=== PATIENT | female | born 1945 | race Caucasian/White ===

== ENCOUNTER 2017-01-15 19:54 | Emergency (ER) | payer MEDICARE ==
[~2017-01-15] VITALS: Ht 157.4 cm; Wt 81.6 kg
[~2017-01-15 19:54] MED LIST: ASPIRIN ADULT L81 M2 PO; ASPIRIN325 MG PO; CARDIZEM CD300 MG PO; CLARITIN10 MG PO; COZAAR100 MG PO; Coumadin5 MG PO; DILTIAZEM30 MG PO; FUROSEMIDE20 MG PO; HYDRALAZINE HYD50 MG PO; HYDROCHLOROTHIA25 M1 PO; KLOR-CON M1010 ME1 PO; LASIX40 MG PO; LEVAQUIN750 M1 PO; LEVOTHYROXINE0.15 MG PO; LOPRESSOR50 M1 PO; MAGNESIUM OXID400 MG PO; NOVOLOG; OSMOLITE; OYSTER SHELL C1 EAC4 PO; PHOS-NAK1 PDR PO; PREDNISONE10 MG PO; PROTONIX PEG; PROZAC20 MG PO; VITAMIN D32000 UNIT PO; ZOCOR40 MG PO; ZYRTEC10 MG PO; [UNRECOGNIZED DRUG - SUPPLY] PO
[2017-01-15] MEDS ORDERED: PROZAC20 MG PO (20:01)
[2017-01-15] MEDS ORDERED: LIPITOR10 MG PO (20:01)
[2017-01-15] MEDS ORDERED: LOPRESSOR50 M1 PO (20:02)
[2017-01-15] MEDS ORDERED: HYDRALAZINE HYD50 MG PO (20:02)
[2017-01-15] MEDS ORDERED: VITAMIN D-32000 UNI1 PO (20:02)
[2017-01-15] MEDS ORDERED: LASIX40 MG PO (20:03)
[2017-01-15] MEDS ORDERED: DILTIAZEM 24HR300 MG PO (20:03)
[2017-01-15] MEDS ORDERED: COZAAR100 MG PO (20:03)
[2017-01-15] MEDS ORDERED: WARFARIN SOD5 MG PO (20:04)
[2017-01-15] MEDS ORDERED: COUMADIN2.5 M1 PO (20:04)
== END 2017-01-15 20:18 | disposition home or self-care (01) ==
LOC: ED 19:54
DX: S80.811A Abrasion, right lower leg, initial encounter (principal); S80.212A Abrasion, left knee, initial encounter; J44.9 Chronic obstructive pulmonary disease, unspecified; I48.91 Unspecified atrial fibrillation; I13.0 Hypertensive heart and chronic kidney disease with heart failure and stage 1 through stage 4 chronic kidney disease, or unspecified chronic kidney disease; I50.30 Unspecified diastolic (congestive) heart failure; N18.3 Chronic kidney disease, stage 3 (moderate); J45.909 Unspecified asthma, uncomplicated; E78.5 Hyperlipidemia, unspecified; E03.9 Hypothyroidism, unspecified; Z88.1 Allergy status to other antibiotic agents; Z88.6 Allergy status to analgesic agent; Z88.8 Allergy status to other drugs, medicaments and biological substances; Z79.02 Long term (current) use of antithrombotics/antiplatelets; Z79.899 Other long term (current) drug therapy; W01.0XXA Fall on same level from slipping, tripping and stumbling without subsequent striking against object, initial encounter; Y93.01 Activity, walking, marching and hiking; Y92.009 Unspecified place in unspecified non-institutional (private) residence as the place of occurrence of the external cause; Y99.8 Other external cause status

== ENCOUNTER 2017-01-16 11:35 | Emergency (ER) | payer MEDICARE ==
[~2017-01-16] VITALS: Wt 74.8 kg
[~2017-01-16 11:35] MED LIST changes: +COUMADIN2.5 M1 PO; +DILTIAZEM 24HR300 MG PO; +LIPITOR10 MG PO; +VITAMIN D-32000 UNI1 PO; +WARFARIN SOD5 MG PO
[2017-01-16 17:54] LABS: BASO % 0.3 % (0.0-1.0); EOS # 0.3 10*3/uL (0.0-0.4); EOS % 3.4 % (1.0-4.0); HEMATOCRIT 35.7 % (37.0-47.0); HEMOGLOBIN 11.8 g/dl (12.0-16.0); LYMPH # 1.8 10*3/uL (1.3-4.4); LYMPH % 24.8 % (27.0-41.0); MEAN CELL VOLUME 90.6 fl (81.0-99.0); MEAN CORPUSCULAR HGB 29.9 pg (27.0-31.0); MEAN CORPUSCULAR HGB CONC 33.1 g/dl (33.0-37.0); MONO # 0.5 10*3/uL (0.1-1.0); MONO % 7.1 % (3.0-9.0); NEUT # 4.7 10*3/uL (2.3-7.9); PLATELET COUNT AUTOMATED 147 10*3/uL (130-400); RED BLOOD COUNT 3.94 10*6/uL (4.10-5.10); RED CELL DISTRI WIDTH 13.4 % (0-14.5); WHITE BLOOD COUNT 7.4 10*3/uL (4.8-10.8)
[2017-01-16 18:05] LABS: PROTHROMBIN TIME 22.7 SECONDS (9.0-12.4)
== END 2017-01-16 18:37 | disposition home or self-care (01) ==
LOC: ED 11:35
PROVIDERS: Emergency Medicine
DX: S81.811D Laceration without foreign body, right lower leg, subsequent encounter (principal); I48.91 Unspecified atrial fibrillation; I13.0 Hypertensive heart and chronic kidney disease with heart failure and stage 1 through stage 4 chronic kidney disease, or unspecified chronic kidney disease; N18.3 Chronic kidney disease, stage 3 (moderate); E78.5 Hyperlipidemia, unspecified; E03.9 Hypothyroidism, unspecified; J44.9 Chronic obstructive pulmonary disease, unspecified; Z79.899 Other long term (current) drug therapy; Z79.02 Long term (current) use of antithrombotics/antiplatelets; Z88.1 Allergy status to other antibiotic agents; Z88.6 Allergy status to analgesic agent; Z88.8 Allergy status to other drugs, medicaments and biological substances; W19.XXXD Unspecified fall, subsequent encounter; Y92.9 Unspecified place or not applicable; Y99.9 Unspecified external cause status

== ENCOUNTER → 2017-01-18 | Outpatient (CLI) | payer MEDICARE | LOC: WOUNDCARE 04:25 | DX: S81.811D Laceration without foreign body, right lower leg, subsequent encounter (principal); I48.91 Unspecified atrial fibrillation; J44.9 Chronic obstructive pulmonary disease, unspecified; F32.9 Major depressive disorder, single episode, unspecified; E78.5 Hyperlipidemia, unspecified; I11.0 Hypertensive heart disease with heart failure; I50.30 Unspecified diastolic (congestive) heart failure; E03.9 Hypothyroidism, unspecified; Z79.01 Long term (current) use of anticoagulants; X58.XXXD Exposure to other specified factors, subsequent encounter ==

== ENCOUNTER → 2017-01-25 | Outpatient (CLI) | payer MEDICARE | LOC: WOUNDCARE 02:49 | DX: L97.812 Non-pressure chronic ulcer of other part of right lower leg with fat layer exposed (principal); I87.2 Venous insufficiency (chronic) (peripheral); I48.91 Unspecified atrial fibrillation; Z79.01 Long term (current) use of anticoagulants ==

== ENCOUNTER → 2017-02-01 | Outpatient (CLI) | payer MEDICARE | LOC: WOUNDCARE 03:08 | DX: I70.238 Atherosclerosis of native arteries of right leg with ulceration of other part of lower leg (principal); L97.812 Non-pressure chronic ulcer of other part of right lower leg with fat layer exposed; Z79.01 Long term (current) use of anticoagulants ==

== ENCOUNTER → 2017-02-15 | Outpatient (CLI) | payer MEDICARE ==
--- NOTE | ~2017-02-15 | PR ---
[place], [place] PROGRESS NOTE NAME: [facility] H[facility] #: [id number] UNIT #: [id number] ROOM: DOCTOR: MICHAEL AdairUZAIR BIRTHDATE: [birth year] DOS: CHIEF COMPLAINT: Wound on the right leg. HISTORY OF PRESENT ILLNESS: This is a 71-year-old female who suffered a large skin tear on 01/16/2017. She has been coming to the Wound Clinic for 4 weeks now. She had a fairly large open wound with necrotic tissue. She has been on anticoagulation for atrial fibrillation and had a couple of episodes of bleeding secondary to this. The last time she was here, we had added Bactroban to the Santyl and she comes back for her routine visit. She offers no specific complaints. Home health has been changing her bandage. PHYSICAL EXAMINATION: VITAL SIGNS: Stable, temperature is 98.2, pulse is 58, respirations are 18 and blood pressure is 100/60. SKIN: The wound is measuring a little bit smaller at 2.6 x 4.7 x 0.2. There is pretty good granulation. There is still some fibrin slough present mostly in the middle part of the wound. There is still exposed subcutaneous tissue. There is, however, around the periwound a dermatitis-type reaction to something. Her [id number] who brings her thinks it started as soon as we started the new medication, which was Bactroban. So, she must have had some type of allergic reaction to that. A debridement was done today. The tissue removed was fibrin, slough and subcutaneous tissue. This was accomplished with a curette, forceps and scissors. There was minimal bleeding that was controlled with pressure. Post-debridement measurements are unchanged. The patient tolerated the debridement well and there was moderate bleeding that was controlled with pressure. ASSESSMENT AND PLAN: Abrasion of the right leg which was quite large with large amounts of necrotic tissue. Overall, there is much less necrotic tissue. I would like to stop the Santyl and stop the Bactroban and use Maxorb for absorption. It does appear that there is some maceration present as well, so hopefully this will help. We can use Telfa as a secondary dressing with Amanda and have her change it every other day. Followup is in one week. We will also use Tubigrip for edema control. [place], [place] [facility]GR[id number] UNIT #: [id number] ROOM: DOCTOR: UZAIR RODRIGUEZ M.D. BIRTHDATE: [birth year] UZAIR RODRIGUEZ MD CM:BART 1116 113 UZAIR RODRIGUEZ M.D. 02/15/17 1132 interface
== END ==
LOC: WOUNDCARE 04:16
DX: L97.812 Non-pressure chronic ulcer of other part of right lower leg with fat layer exposed (principal); I48.91 Unspecified atrial fibrillation; Z79.01 Long term (current) use of anticoagulants

== ENCOUNTER → 2017-02-23 | Outpatient (CLI) | payer MEDICARE ==
--- NOTE | ~2017-02-23 | PR ---
[place], [place] PROGRESS NOTE NAME: ROCKY HAM UNIT #: [id number] ROOM: DOCTOR: MICHAEL AdairUZAIR BIRTHDATE: [birth year] DOS: 02/23/2017 CHIEF COMPLAINT: Followup of chronic wound of the right lower extremity. HISTORY OF PRESENT ILLNESS: This is a 71-year-old female on chronic anticoagulation, who suffered a large skin tear on the anterior right tibia early this past January. She has been coming to the Wound Clinic for 5 weeks now with this steadily improving wound; however, last week, it was noted that she did have some dermatitis around the periwound area and her dressing was changed to Maxorb. Currently, she is having no complaints. We also had recommended Tubigrip for chronic edema, but she did not like it, she said it made her feet itch, so she did not wear it. She has very little drainage. No fevers or chills. No pain with the wound. She is able to walk on it without any specific complaints. OBJECTIVE: VITAL SIGNS: Stable. Temperature 98.2, pulse 60, respirations 18, blood pressure is 102/60. SKIN: The wound is measuring slightly smaller at 2.6 x 4 x 0.1. It looks fairly clean. There is still some minimal to moderate slough. The periwound area is quite erythematous in a dermatitis type pattern secondary to what appears to be from the dressing material. A debridement was done. Tissue removed was fibrin slough and subcutaneous tissue. There was minimal to moderate bleeding that was controlled with pressure. Post debridement measurements are unchanged. The patient tolerated the debridement well. ASSESSMENT AND PLAN: Cetacaine spray was used for topical anesthesia. A lot of the maceration that was present before is definitely resolved. Apparently, she was on Maxorb and that did stick to the wound a bit, so I would like to switch her to just Adaptic and 4 x 4s and Amanda and have her change it every other day. Due to the dermatitis around the periwound. We will prescribe a triamcinolone cream. This will be called into her pharmacy blower today. We will use hydrocortisone. Followup in one week. [place], [place] PROGRESS NOTE NAME: ROCKY HAM UNIT #: [id number] ROOM: DOCTOR: UZAIR RODRIGUEZ M.D. BIRTHDATE: [birth year] UZAIR RODRIGUEZ MD CM:BART [phone] UZAIR RODRIGUEZ M.D. 02/23/17 1138 interface
== END ==
LOC: WOUNDCARE 00:50
DX: L97.812 Non-pressure chronic ulcer of other part of right lower leg with fat layer exposed (principal); Z79.01 Long term (current) use of anticoagulants

== ENCOUNTER → 2017-03-01 | Outpatient (CLI) | payer MEDICARE ==
--- NOTE | ~2017-03-01 | PR ---
[place], [place] PROGRESS NOTE NAME: R[facility]Y HAM [facility] #: [id number] UNIT #: [id number] ROOM: DOCTOR: MICHAEL AdairUZAIR BIRTHDATE: [birth year] DOS: 03/01/2017 WOUND CARE FOLLOWUP NOTE CHIEF COMPLAINT: Follow up of right lower extremity wound. HISTORY OF PRESENT ILLNESS: The wound is located on the anterior lower extremity. She is a 71-year-old female on chronic anticoagulation. She suffered a very large skin tear of the anterior tibia. She has been coming to the Wound Clinic for 6 weeks now. The wound has been steadily improving last week and it was noted that she had a lot of dermatitis around the area. Steroid cream was prescribed; however, her family member who generally cares for her, did not pick it up. She reports no significant pain, fevers, chills, or change in drainage. OBJECTIVE: VITAL SIGNS: Stable. Temperature 98.2, pulse is 60, respirations 18, blood pressure is 98/48. The wound is measuring slightly smaller at 1 x 2.5 x 0.1. There is a large amount of periwound dermatitis. It is erythematous, dry, scaly at times. The patient says it does itch her. There is minimal fibrin slough in the base of the wound. There is hypergranulation as well noted. A selective debridement was done. The tissue removed was fibrin, slough, and biofilm. The patient tolerated the debridement well. Cetacaine spray was used for topical anesthesia. A curette was utilized. There was no bleeding. Postdebridement measurements are unchanged. ASSESSMENT AND PLAN: Chronic ulcer of the right lower extremity secondary to a very large skin tear that seems to be gradually healing. She still has dermatitis around the periwound. There may be a cellulitic component to it as well as it remains fairly erythematous. We will go ahead and start doxycycline empirically 100 mg twice a day was called [facility]. Also, I did verify they still have a steroid cream available. I would like her to use that on a daily basis as well on the outside of the wound. For the wound itself, we will go ahead and use TheraHoney sheet, 4 x 4s, Amanda, and have her follow up in the Wound Clinic in next week. I did recommend for her to get her Coumadin checked in 2-3 days after being on the antibiotics results to go to PCP. [place], [place] PROGRESS NOTE NAME: ROCKY HAM UNIT #: [id number] ROOM: DOCTOR: UZAIR RODRIGUEZ M.D. BIRTHDATE: [birth year] UZAIR RODRIGUEZ MD CM:BART [phone] UZAIR RODRIGUEZ M.D. 03/01/17 2251 interface
== END | disposition home or self-care (01) ==
LOC: WOUNDCARE 03:18
DX: L97.812 Non-pressure chronic ulcer of other part of right lower leg with fat layer exposed (principal); Z79.01 Long term (current) use of anticoagulants

== ENCOUNTER → 2017-03-08 | Outpatient (CLI) | payer MEDICARE ==
--- NOTE | ~2017-03-08 | PR ---
[place], [place] PROGRESS NOTE NAME: [facility] H[facility] #: [id number] UNIT #: [id number] ROOM: DOCTOR: MICHAEL AdairUZAIR BIRTHDATE: [birth year] DOS: 03/08/2017 WOUND CARE PROGRESS NOTE CHIEF COMPLAINT: Followup of a wound of the right lower extremity. SUBJECTIVE: This is a 71-year-old female with multiple medical problems on chronic anticoagulation, who has had a very large skin tear of the anterior tibia. She has been coming to the wound clinic for 7 weeks now. The wound has been steadily improving; however, she was noted to have severe dermatitis around the periwound over the last 2-3 occasions, she has been to the clinic. Last week; however, it was felt that there might be mild cellulitis associated with it and antibiotics were called in for the patient to start in addition to steroid cream was also utilized and dressing material was changed. She is now just TheraHoney sheets to the wound itself and Kerlix and 4 x 4s over it. She comes in today without any specific complaints. The wound is getting smaller. There are no fevers or chills. She still has some itchiness around the periwound area. OBJECTIVE: VITAL SIGNS: Stable. Temperature is 98.2, pulse is 56, respirations 18, blood pressure is 102/50. WOUND EXAM: The wound is measuring 1 x 2.1 x 0.1. There is still some fibrin slough present. Some of it is still present in various parts of the wound. Selective debridement was done. Tissue removed was fibrin, slough and biofilm. There was minimal bleeding that was controlled with pressure. Instrument used was curette, forceps, and scissors. Post-debridement measurements are unchanged. The patient tolerated the debridement well. ASSESSMENT AND PLAN: Chronic ulcer of the right lower extremity, which definitely seems stable and improving; however, there is still a periwound dermatitis apparent around it; however, it seems to be more towards wherever the cleaning or the Kerlix would have been placed, so we will try and use a tubular netting and start to hold the dressing in place and see if this helps. Followup is in one week. She will continue with triamcinolone cream at home. She has only used it twice since last week. [place], [place] PROGRESS NOTE NAME: ROCKY HAM UNIT #: [id number] ROOM: DOCTOR: UZAIR RODRIGUEZ M.D. BIRTHDATE: [birth year] UZAIR RODRIGUEZ MD CM:BART [phone] 49 UZAIR RODRIGUEZ M.D. 03/08/17 530 interface
== END | disposition home or self-care (01) ==
LOC: WOUNDCARE 03:05
DX: L97.812 Non-pressure chronic ulcer of other part of right lower leg with fat layer exposed (principal); Z79.01 Long term (current) use of anticoagulants

== ENCOUNTER → 2017-03-15 | Outpatient (CLI) | payer MEDICARE ==
--- NOTE | ~2017-03-15 | PR ---
[place], [place] PROGRESS NOTE NAME: ROCKY [facility] #: [id number] UNIT #: [id number] ROOM: DOCTOR: MICHAEL AdairUZAIR BIRTHDATE: [birth year] DOS: 03/15/2017 CHIEF COMPLAINT: Followup of right lower extremity wound. HISTORY OF PRESENT ILLNESS: This is a 71-year-old female who had suffered a very large skin tear in the anterior tibia several weeks ago. She has been coming to the Wound Clinic for 8 weeks now. The wound has been steadily improving. She had quite a bit of dermatitis and irritation around the wound. It has been getting smaller, but still not healed. She has been switched to TheraHoney and a lot of the irritation around the periwound area has improved with hydrocortisone cream. She does not really have any complaints. There is some drainage she noticed coming through the dressings, but no fevers or chills or pain or discomfort with the wound. PHYSICAL EXAMINATION: She is afebrile, pulse is 58, respirations are 18, blood pressure is 98/58. The wound is measuring 1.6 cm x 1.7 cm x 0.1 cm. There still minimal to moderate amount of fibrin slough. The periwound erythema is much improved. The dermatitis is much improved. There is still some hypergranulation noted. It is still somewhat, with some macerations still noted as well. A selective debridement was done just to remove fibrin slough and devitalized tissue only. This occurred with forceps and scissors. The patient tolerated the debridement well. There is minimal bleeding. Post-debridement measurements are slightly larger at 3.3 cm x 4.2 cm x 0.1 cm. ASSESSMENT AND PLAN: Very large skin tear of the right anterior tibia that has been very slow to heal. A culture was obtained post-debridement today of one of the areas that were still bleeding. Overall, it looks clean post-debridement with no acute signs of infection. She does have evidence of venous stasis disease as well. She has had an arterial Doppler done which shows generalized atherosclerosis with no occlusive disease. So, I would like to go ahead and try her on a compression bandage to see if we can help facilitate healing faster. So we are going to go with the Maxorb and alginate dressing for absorption 4 cm x 4 cm and a unna boot will be applied today. Home health can change it twice before her next Wound Care appointment and then we will decide if she can go for a week without changing it. Followup is in one week. [place], [place] PROGRESS NOTE [facility] [id number] UNIT #: [id number] ROOM: DOCTOR: UZAIR RODRIGUEZ M.D. BIRTHDATE: [birth year] UZAIR RODRIGUEZ MD CM:BART [phone] UZAIR RODRIGUEZ M.D. 03/16/17 0508 interface
== END | disposition home or self-care (01) ==
LOC: WOUNDCARE 13:19
DX: I87.2 Venous insufficiency (chronic) (peripheral) (principal); L97.812 Non-pressure chronic ulcer of other part of right lower leg with fat layer exposed

== ENCOUNTER → 2017-03-23 | Outpatient (CLI) | payer MEDICARE ==
--- NOTE | ~2017-03-23 | PR ---
[place], [place] PROGRESS NOTE NAME: [facility] #: [id number] UNIT #: [id number] ROOM: DOCTOR: MICHAEL AdairUZAIR BIRTHDATE: [birth year] DOS: 03/23/2017 CHIEF COMPLAINT: Followup of open wound of the right lower extremity. HISTORY OF PRESENT ILLNESS: This is a 71-year-old female with a history of an open wound of the right lower extremity that was traumatic in nature and has been very slow to heal. She has been coming to the Wound Clinic for 9 weeks now. We did notice that the wound was very slow to heal last week and an Unna boot was ordered; however, she comes in today without Unna boot. Apparently home health had put it on and it just fell down and it stay up, so it looks instead of the dressing that we had ordered, they used a different dressing. It looks like they went back to [facility] or so. She has no specific complaints. There is no pain, fever or chills. She did have a recent culture which was negative. OBJECTIVE: VITAL SIGNS: Stable. Temperature is 98.4, pulse of 60, respirations 18, blood pressure is 90/50. The wound is measuring 1.5 x 1.6 x 0.1; however, my measurements are different than that. There is a lot of maceration and within those measurements are some denuded areas secondary to maceration. Debridement was done. This was a selective debridement only just to remove devitalized tissue. There was no bleeding. A curette, forceps, and scissors were utilized. The patient tolerated the debridement well. Post-debridement measurements are 3 x 6 x 0.1, but once again there is some area of maceration with some denuded skin secondary to this around the original wound. ASSESSMENT AND PLAN: Chronic traumatic wound of the right lower extremity, very slow to heal. It does not appear infected. It is somewhat hypergranulated. I think it needs a dressing to dry it up more. I would like her to go back to the Maxorb but without silver component of it. There is really no sign of acute infection and hopefully this will dry it up further. Followup in one week. Other options are to consider Iodosorb and another alternate next week if there has been no improvement. Follow up in one week. I will not use the Unna boot since it sounds like she either did not tolerate it well or it was not wrapped on correctly but we will discontinue for now. [place], [place] PROGRESS NOTE NAME: ROCKY HAM UNIT #: [id number] ROOM: DOCTOR: UZAIR RODRIGUEZ M.D. BIRTHDATE: [birth year] UZAIR RODRIGUEZ MD CM:BART [phone] UZAIR RODRIGUEZ M.D. 03/24/17 1144 interface
== END | disposition home or self-care (01) ==
LOC: WOUNDCARE 02:36
DX: I87.2 Venous insufficiency (chronic) (peripheral) (principal); L97.812 Non-pressure chronic ulcer of other part of right lower leg with fat layer exposed

== ENCOUNTER → 2017-03-27 | Outpatient (CLI) | payer MEDICARE ==
[~2017-03-27] MED LIST changes: +DOXYCYCLINE100 M3 PO
--- NOTE | ~2017-03-27 | PR ---
[place], [place] PROGRESS NOTE NAME: [facility] #: [id number] UNIT #: [id number] ROOM: DOCTOR: MICHAEL AdairUZAIR BIRTHDATE: [birth year] DOS: 03/27/2017 CHIEF COMPLAINT: Followup open wound of the right lower extremity. HISTORY OF PRESENT ILLNESS: This is a 71-year-old female who has had a wound now present for 9 weeks that has been very slow to heal. It started out as traumatic, but has been very slow to heal. Since then, she likely has venous insufficiency and arterial studies have been done, which did not show any occlusive disease. She has home health helping her with dressing changes. She has been quite sensitive to multiple products that have been tried and although an unna boot was prescribed for some reason. She said it fell and this did not stay up and when she came in the last week it was not really on her leg. In any case, we held off on compression at that last weekend, we did notice that there was some hypergranulation and irritation around the periwound area. The home health asked to see if we could do a culture as they felt that it was draining more and that was done today. She comes in today complaining of increased drainage to the wound, and she had a noticeable pustule above the original wounded area that really was not present last week. This was definitely noted, this was about the size of a dime. OBJECTIVE: VITAL SIGNS: Stable. Temperature is 98.6, pulse of 60, respirations 18, blood pressure is 102/64. The wound is measuring bigger at 7 x 11 x 0.1, although it looks fairly clean. It does not look to be as hypergranulated as last week. She was on alginate dressing; however, there was a definite pustule noted. This area was debrided. All the pus was cleaned out with a curette and the base of the wound was clean, it was not very deep. There was minimal fibrin slough present, which was debrided with a curette as well. The purulent area was cultured, obtained for culture. ASSESSMENT AND PLAN: Chronic leg wound, which is very slowly to heal now with a pustule. We will start the patient on doxycycline and see what the culture show. I would like to try a dressing that will absorb more because it is still pretty weepy. We will try Arglaes powder to the wound base along with Maxorb. She has home health and I think it might be difficult for them to obtain Iodosorb, so I would like to hold off on that one, but in the meantime, we will continue with an alginate and Arglaes powder to see if we can help dry the wound up a little bit more. Follow up later this week to see if they have improved. In the meantime, we will add a Tubigrip for edema control. At some point, I think we should really try the compression again, possibly next week. Follow up later this week. [place], [place] PROGRESS NOTE [id number] UNIT #: [id number] ROOM: DOCTOR: UZAIR RODRIGUEZ M.D. BIRTHDATE: [birth year] UZAIR RODRIGUEZ MD CM:PNTRANS [phone] UZAIR RODRIGUEZ M.D. 03/28/17 1305 interface
== END | disposition home or self-care (01) ==
LOC: WOUNDCARE 13:08
DX: I87.2 Venous insufficiency (chronic) (peripheral) (principal); L97.812 Non-pressure chronic ulcer of other part of right lower leg with fat layer exposed; I77.1 Stricture of artery

== ENCOUNTER 2017-03-30 13:40 | Inpatient (IN) | payer MEDICARE, MEDICAID ==
[~2017-03-30] VITALS: Ht 157.4 cm; Wt 86.2 kg
--- NOTE | ~2017-03-30 | PR ---
[place], [place] PROGRESS NOTE NAME: [facility] #: [id number] UNIT #: [id number] ROOM: 503 DOCTOR: BHARAT BUTLER DPM BIRTHDATE: [birth year] DOS: 04/03/2017 SUBJECTIVE: This patient is seen for followup of cellulitis and ulcer of the distal right lower extremity. She states her leg is feeling better. Denies fever, chills, sweats. OBJECTIVE: Neurovascular status is unchanged. Decreased edema and erythema is seen at the right lower leg proximal to the ankle. There is still some serous drainage noted from the wound, but the wound is clean and granular with no purulent drainage or malodor. No increased temperature. ASSESSMENT: Venous leg ulcer, right lower extremity with resolving cellulitis. PLAN: Evaluation and management, okay from Podiatry standpoint for the patient to be discharged. Continue with wound care. She continued to follow up at the wound care center for care of this ulceration and will follow her up at a later date if needed. BHARAT BUTLER DPM CM:PNTRANS 1137 48 BHARAT BUTLER DPM 04/03/17 2349 interface
--- NOTE | ~2017-03-30 | PR ---
[place], [place] PROGRESS NOTE NAME: MCKENNA HAM UNIT #: [id number] ROOM: 503 DOCTOR: PIERCE WATSON,OCTOBER BIRTHDATE: [birth year] DOS: 04/01/2017 SUBJECTIVE: Mckenna is being followed for right leg cellulitis. She is currently on vancomycin and Zosyn; however, there as an outpatient culture from 03/27/2017, which is growing group A strep. It is resistant to clindamycin but it is sensitive to penicillin. Her blood cultures are negative. She is alert and oriented. Denies any pain. No fevers, chills, nausea, vomiting or diarrhea. No rash or itch. No cough or shortness of breath. PHYSICAL EXAMINATION: VITAL SIGNS: Show temperature 99.0, pulse 87, respirations 18, BP 139/59. GENERAL: A 71-year-old female in no acute distress. HEAD, EYES, EARS, NOSE AND THROAT: Normocephalic, no thrush. LUNGS: Clear to auscultation bilaterally. Respirations even and unlabored. HEART: Regular rhythm. No murmur appreciated. ABDOMEN: Soft. EXTREMITIES: She has +2 edema, right lower extremity. Erythema is improving. Wound superficial clean. No odor or purulence. LABORATORY DATA: WBC 7.5, platelets 149. BUN 31, creatinine 1.4 PLAN: We will narrow her antibiotics down to ampicillin based on her recent culture with only group A strep, stop the Zosyn and vancomycin. She can be transitioned to amoxicillin as her leg improves. RICK PELAYO CNP EUGENE KIM MD CM:PNTRANS 23 RICK PELAYO CNP 04/03/17 1640 interface
--- NOTE | ~2017-03-30 | PR ---
[place], [place] PROGRESS NOTE NAME: ROCKY HAM UNIT #: [id number] ROOM: 503 DOCTOR: JULIO BACH,EUGENE Verma BIRTHDATE: [birth year] DOS: 04/01/2017 I agree with the above plans as described. We will continue to follow the patient, make adjustments accordingly. EUGENE KIM MD CM:PNTRANS 06 EUGENE KIM MD 04/01/17 2306 interface
--- NOTE | ~2017-03-30 | PR ---
[place], [place] PROGRESS NOTE [facility] [id number] UNIT #: [id number] ROOM: 503 DOCTOR: BRANDO FINK DPM BIRTHDATE: [birth year] DOS: 04/01/2017 OBJECTIVE: The right lower extremity has open area distal lateral lower leg with no signs of purulent drainage or foul odor, appears to be granulating at this time. No signs of acute drainage today. No signs of abscess or fluctuance. ASSESSMENT: Venous ulceration lateral lower right leg with cellulitis and venous stasis dermatitis. PLAN: Evaluation and management. Continue dressing changes. The patient is stable at this time and continues antibiotics per ID and we will reevaluate the patient on Monday. BRANDO FINK DPM CM:BART 1116 1214 BRANDO FINK DPM 04/01/17 1214 interface
--- NOTE | ~2017-03-30 | CON ---
[place], [place] REPORT OF CONSULTATION NAME: ROCKY HAM UNIT #: [id number] ROOM: 503 DOCTOR: PIERCE WATSON,OCTOBER BIRTHDATE: [birth year] DOS: HISTORY OF PRESENT ILLNESS: The patient is a 71-year-old female who was admitted from home due to a failure of oral antibiotics for right leg cellulitis. She was following with the outpatient wound clinic. She has been treated with doxycycline last week for her leg and has not improved. She has had increasing erythema and swelling. She states she has no pain, also has had yellow drainage from the wound. She had some fevers and chills last week at home subjectively. She has also noted to have an elevated creatinine at the time of admission, now at 1.87. She was started on vancomycin and Zosyn at the time of admission. Now ID is consulted for a right leg wound infections and cellulitis after failing oral antibiotics as an outpatient. History is obtained per discussion with the patient and review of the chart. The wound of her right lower extremity originally occurred back in July when she stumbled, fall down and the leg. PAST MEDICAL HISTORY: As above as well as renal insufficiency, asthma, AFib, COPD, depression, CHF, hyperlipidemia, hypertension, hypothyroidism and vitamin D deficiency. ALLERGIES: Include CEFDINIR, CODEINE, ERYTHROMYCIN, METFORMIN, MORPHINE and PROCAINAMIDE. She does seem to be tolerating the Zosyn without issue. SOCIAL HISTORY: Nonsmoker, nondrinker, no illicit drug use. Lives at home. FAMILY MEDICAL HISTORY: Mother with heart disease and diabetes. Father, kidney disease; sister, lung cancer and brother, lung cancer. Another sister with breast cancer. REVIEW OF SYSTEMS: Alert and oriented. Again, denies pain, but had subjective fevers and chills at home a week ago. No nausea, vomiting, no diarrhea, no rash or itch. No cough or shortness of breath. No headache or dizziness. No chest pain or palpitations. Does have a right lower extremity edema and erythema. REVIEW OF SYSTEMS: Otherwise unremarkable. LABORATORY DATA: Admitting WBCs were 13.2 yesterday. They are down to 8.6 today, platelets 141. BUN 46, creatinine 1.87 and LFTs upon admission, no metabolic panel done today. Blood cultures are pending. The patient states the wound culture was obtained earlier today. RADIOLOGY: Renal ultrasound was negative. Lower extremity ultrasound showed no DVT in the right lower extremity. CURRENT MEDICATIONS: Include Coumadin, vancomycin, vitamin B12, Zosyn, Prozac, Lipitor, Coumadin and Zofran. PHYSICAL EXAMINATION: VITAL SIGNS: Temperature 97.8, pulse 100, respirations 18, BP 122/68. GENERAL: Alert and oriented, pleasant 71-year-old female, in no acute [place], [place] REPORT OF CONSULTATION NAME: ROCKY HAM UNIT #: [id number] ROOM: [facility] DOCTOR: PIERCE WATSONOCTOBER BIRTHDATE: [birth year] distress, obese. HEAD, EYES, EARS, NOSE AND THROAT: Normocephalic. No thrush. LUNGS: Clear to auscultation bilaterally. Respirations even and unlabored. HEART: Regular rhythm. No murmur appreciated. ABDOMEN: Soft, positive bowel sounds, nontender, nondistended. EXTREMITIES: Right lower extremity with +2 to 3 edema with swelling and erythema more distal closed to the ankle with some superficial ulceration, possibly hypergranulation, but is rather dry. No odor, no areas of fluctuance. SKIN: Otherwise, warm, dry, free of rashes. ASSESSMENT: Right lower extremity cellulitis and wound infection. PLAN: She is to continue the vancomycin and Zosyn with clinical pharmacist dosing the vancomycin. We will check BNP in a.m. She does have rmtxm-wf-riuzbdg renal insufficiency. Case discussed with Dr. Eugene Kim. We will follow up on her wound cultures and adjust antibiotics accordingly. OCTOBER WALTER PELAYO EUGENE KIM MD CM:CONSTR:REPORT OF CONSULTATION 1607 04/03/17 1606 interface
--- NOTE | ~2017-03-30 | CON ---
[place], [place] REPORT OF CONSULTATION [id number] UNIT #: [id number] ROOM: 503 DOCTOR: LUKE LYLESBHARAT BIRTHDATE: [birth year] DOS: 03/31/2017 SUBJECTIVE: This 71-year-old female is seen as consulted for evaluation of a right lower leg wound and cellulitis. She states she has been going to the wound care center since January and it had been slowly improving. She was seen twice this week in the wound center and she started to get cellulitis of the lower leg. She was subsequently admitted for IV antibiotic therapy. She does admit to some mild discomfort in the area. She states it itches and boykin. PAST MEDICAL HISTORY: Positive for asthma, atrial fibrillation, and chronic kidney disease stage 3, COPD, depression, CHF, hyperlipidemia, hypertension, hypothyroidism, obesity and vitamin D deficiency. ALLERGIES: MORPHINE, CODEINE, ERYTHROMYCIN, PROCAINAMIDE, METFORMING, CEFDINIR. CURRENT MEDICATIONS: Include Coumadin, Zosyn, Prozac, Lipitor, Restoril, and vancomycin. OBJECTIVE: Upon lower extremity physical examination, DP and PT pedal pulses are palpable. Skin temp is warm. CFT is less than 2 seconds to all digits. Sensation appears grossly intact and symmetrical. The right lower leg has an open area at the distal lateral portion of the lower leg that appears fairly clean and granular. There is no expressible drainage, no malodor. There is some serous drainage, but no purulent drainage noted. No signs of abscess or fluctuance at this time. There is a dermatitis like rash with erythema and increased temperature surrounding the area by about 4-5 cm. Her venous ultrasound was negative. Wound cultures show beta-hemolytic strep. ASSESSMENT: Venous leg ulcer, right lower extremity with cellulitis and dermatitis. PLAN: Consult was performed. I reviewed the notes from the wound care center. The patient has multiple allergies and is also sensitive to silver products. For right now, I would just recommend Adaptic and a dry dressing to the area daily, consult Infectious Disease for IV antibiotics. The patient is on Coumadin and has multiple allergies. We will do wound care and IV antibiotic therapy; continue to monitor the area for improvement. She will be reevaluated tomorrow. Thank you for the opportunity to take part in care of this patient. [place], [place] REPORT OF CONSULTATION NAME: RCOKY HAM UNIT #: [id number] ROOM: 503 DOCTOR: BHARAT BUTLER DPM BIRTHDATE: [birth year] BHARAT BUTLER DPM CM:CONSTR:REPORT OF CONSULTATION 1209 04/01/17 0009 interface
--- NOTE | ~2017-03-30 | CON ---
[place], [place] REPORT OF CONSULTATION NAME: ROCKY HAM UNIT #: [id number] ROOM: 503 DOCTOR: JULIO BACH,EUGENE Verma BIRTHDATE: [birth year] DOS: ADDENDUM After reviewing the labs, microbiology and radiographs, I agree with the above plans as described in a consult on 03/31/2017 from Infectious Disease. EUGENE KIM MD CM:CONSTR:REPORT OF CONSULTATION 1621 03/31/17 2133 interface
--- NOTE | ~2017-03-30 | PR ---
[place], [place] PROGRESS NOTE NAME: ROCKY HAM UNIT #: [id number] ROOM: 503 DOCTOR: PIERCE WATSON BIRTHDATE: [birth year] DOS: SUBJECTIVE: The patient is being followed for right lower extremity cellulitis and infected wound. Cultures had grown group A strep. She is currently on ampicillin. She is doing well, tolerating the antibiotics. Denies fevers, chills, nausea, vomiting or diarrhea. No rash or itch. No cough or shortness of breath. She has been afebrile. LABORATORY DATA: WBC 7.5, platelets 170. BUN 26, creatinine 1.3. PHYSICAL EXAMINATION: VITAL SIGNS: Show temperature 98.4, pulse 82, respirations 18, BP 149/73. GENERAL: Alert and oriented 71-year-old female in no acute distress. HEAD, EYES, EARS, NOSE AND THROAT: Normocephalic, no thrush. LUNGS: Clear to auscultation bilaterally. Respirations even and unlabored. HEART: Regular rhythm. No murmur appreciated. ABDOMEN: Soft, nontender. EXTREMITIES: Right lower extremity +2 to 3 edema. She has got some mild erythema around the wound, no odor. SKIN: Warm and dry. She does have excoriations around her wound as well as signs of scratching above and below it. ASSESSMENT: Right lower extremity cellulitis with infected wounds with group A strep. PLAN: She is doing well on the ampicillin. I would anticipate changing her over to oral amoxicillin in the next 24-48 hours. I did discuss with the patient and her family the increase in edema, which will have post-treatment and she needs to give her leg elevated, decrease salt in her diet to help with the swelling. ADDENDUM. I agree with the above plans, follow up clinically and make appropriate changes accordingly. RICK WALTER PELAYO [place], [place] PROGRESS NOTE NAME: ROCKY HAM UNIT #: [id number] ROOM: 503 DOCTOR: PIERCE WATSONOCTOBER BIRTHDATE: [birth year] EUGENE KIM MD CM:BART [id number] PIERCE WATSNO 04/03/17 1659 interface
[~2017-03-30 13:40] MED LIST changes: -AMOXICILLIN500 M3 PO; -DOXYCYCLINE100 M3 PO
[2017-03-30 13:47] VITALS: BP 118/45
[2017-03-30 14:26] VITALS: BP 116/84
[2017-03-30 15:14] LABS: BASO % 0.2 % (0.0-1.0); EOS # 0.4 10*3/uL (0.0-0.4); EOS % 3.3 % (1.0-4.0); HEMATOCRIT 32.6 % (37.0-47.0); HEMOGLOBIN 10.5 g/dl (12.0-16.0); LYMPH # 1.7 10*3/uL (1.3-4.4); LYMPH % 12.8 % (27.0-41.0); MEAN CELL VOLUME 93.7 fl (81.0-99.0); MEAN CORPUSCULAR HGB 30.2 pg (27.0-31.0); MEAN CORPUSCULAR HGB CONC 32.2 g/dl (33.0-37.0); MONO % 7.6 % (3.0-9.0); NEUT % 75.6 % (47.0-73.0); PLATELET COUNT AUTOMATED 148 10*3/uL (130-400); RED BLOOD COUNT 3.48 10*6/uL (4.10-5.10); RED CELL DISTRI WIDTH 13.6 % (0-14.5); WHITE BLOOD COUNT 13.2 10*3/uL (4.8-10.8)
[2017-03-30 15:22] LABS: INTERNATIONAL NORM RATIO 1.8 (2.0-3.5)
[2017-03-30 15:29] LABS: ALBUMIN 2.8 gm/dl (3.1-4.5); CREATININE 1.95 mg/dL (0.55-1.02); POTASSIUM 3.2 mmol/L (3.5-5.1); TOTAL PROTEIN 6.8 gm/dL (6.4-8.2)
--- NOTE | 2017-03-30 15:52 | NUR ---
REPORT CALLED TO LISSETT PERSON BY JOCELYN PERSON AT THIS TIME.
[2017-03-30 16:00] VITALS: BP 124/65
--- NOTE | 2017-03-30 16:00 | NUR ---
PATIENT ZOSYN FINISHED. IV FLUSHED AND VANCOMYCIN HAS BEEN STARTED. PATIENT SENT WITH TERA TIM AT THIS TIME TO 5TH FLOOR.
[2017-03-30 16:15] VITALS: BP 124/65
--- NOTE | 2017-03-30 16:15 | NUR ---
Time: 1614 A 71 year old FEMALE admitted to 5E under services of DR. SHENA BACH,FATEMEH. Pt. arrived via stretcher from ER. Chief complaint: CELLULITIS OF WOUND TO RLE. RU GRAJEDA
[2017-03-30] MEDS ORDERED: DOXYCYCLINE100 M3 PO (16:32)
--- NOTE | 2017-03-30 16:45 | NUR ---
MED RECONCILIATION COMPLETED AT [facility] AND UPDATED MED LIST. COPY ON FILE IN CHART.
--- NOTE | 2017-03-30 16:52 | NUR ---
PT UNABLE TO GIVE CONSENT FOR PHOTOGRAPH OF RLE WOUND.
--- NOTE | 2017-03-30 16:53 | NUR ---
NOTIFIED DR CHARLTON PER ANSWERING SERVICE FOR NEW CONSULT FOR CKD.
--- NOTE | 2017-03-30 16:57 | NUR ---
NOTIFIED VIA VOICEMAIL OF NEW CONSULT OF HER EXISTING PT FOR RLE CELLULITIS .
--- NOTE | 2017-03-30 17:20 | NUR ---
DR RODRIGUEZ RETURNED MY CALL AND NOTIFIED ME THAT SHE WAS NO LONGER EMPLOYED HERE AND TODAY WAS HER LAST DAY AT [facility].
--- NOTE | 2017-03-30 17:25 | NUR ---
NOTIFIED DR Jovanny SHETH ABOUT DR RODRIGUEZ'S NO LONGER EMPLOYED AND WOULD NOT ACCEPT ANY CALLS REGARDING PATIENTS. ORDER RECIEVED TO CONSULT WOUNDCARE RN, ROSI MCKEON.
[2017-03-30 20:00] VITALS: BP 116/68
--- NOTE | 2017-03-30 20:00 | NUR ---
ABLE TO OBTAIN PERMISSION TO TAKE PICTURES FROM PATIENT'S NIECE, KHARI.
--- NOTE | 2017-03-30 22:00 | NUR ---
RESTING IN BED WITH HOB ELEVATED. IV FLUIDS INFUSING INTO RIGHT ANTECUBITAL WITHOUT DIFFICULTY; SITE ASYMPTOMATIC. PT. VOICES NO C/O AT THIS TIME. NO DISTRESS NOTED. NIECE HERE VISITING.
[2017-03-31] VITALS: BP 113/47
--- NOTE | 2017-03-31 02:00 | NUR ---
RESTING IN BED WITH EYES CLOSED. CALL LIGHT WITHIN REACH.
[2017-03-31 06:40] LABS: BASO % 0.3 % (0.0-1.0); EOS # 0.6 10*3/uL (0.0-0.4); EOS % 6.6 % (1.0-4.0); HEMATOCRIT 29.7 % (37.0-47.0); HEMOGLOBIN 9.6 g/dl (12.0-16.0); LYMPH # 1.5 10*3/uL (1.3-4.4); LYMPH % 16.9 % (27.0-41.0); MEAN CELL VOLUME 94.6 fl (81.0-99.0); MEAN CORPUSCULAR HGB 30.6 pg (27.0-31.0); MEAN CORPUSCULAR HGB CONC 32.3 g/dl (33.0-37.0); MEAN PLATELET VOLUME 10.8 fl (9.6-12.3); MONO # 0.7 10*3/uL (0.1-1.0); MONO % 8.2 % (3.0-9.0); NEUT # 5.8 10*3/uL (2.3-7.9); NEUT % 67.7 % (47.0-73.0); PLATELET COUNT AUTOMATED 141 10*3/uL (130-400); RED BLOOD COUNT 3.14 10*6/uL (4.10-5.10); RED CELL DISTRI WIDTH 13.5 % (0-14.5); WHITE BLOOD COUNT 8.6 10*3/uL (4.8-10.8)
[2017-03-31 07:05] LABS: ALBUMIN 2.5 gm/dl (3.1-4.5); CREATININE 1.87 mg/dL (0.55-1.02); MAGNESIUM 2.2 mg/dL (1.5-2.1); PHOSPHOROUS 3.4 mg/dL (2.5-4.9); POTASSIUM 3.5 mmol/L (3.5-5.1)
[2017-03-31 07:11] LABS: ACT PARTIAL THROMBO TIME 37.7 SECONDS (20.8-31.5); INTERNATIONAL NORM RATIO 1.9 (2.0-3.5)
[2017-03-31 07:12] LABS: THYROID STIM HORMONE (HS) 2.44 uIU/ml (0.358-4.75); TOTAL PROTEIN 5.8 gm/dL (6.4-8.2)
[2017-03-31 08:00] VITALS: BP 116/78
--- NOTE | 2017-03-31 08:34 | NUR ---
Meal Room Hand in to talk to patient. Patient states lives at HOME [address] with HER SISTER'S BROTHER IN [place]. There are 0 steps in the home. Physician: DR CHATTERJEE Pharmacy: [facility] Home health services: [facility]-DOES NOT KNOW [facility] NAME Patient's level of ADLs: MINIMAL ASSIST Patient has working utilities: YES DME: NONE Follow-up physician's appointment after d/c: PREFERS TO MAKE HER OWN APPT Does patient want to access PORTAL?: Discharge plan HOME. TORRI VINCENT
[2017-03-31 09:04] LABS: VITAMIN D, 25-HYDROXY 41.7 ng/mL (30-100)
--- NOTE | 2017-03-31 09:08 | NUR ---
PHYSICAL THERAPY Ptient on bedisde commode at this time. Thank you for this referral. Lilibeth Ag,PT
--- NOTE | 2017-03-31 09:22 | NUR ---
Patient not available for Occupational Therapy evaluation this date as she is on the bedside commode. OTR will recheck at a later time. Arleth Barlow OTR/miguel ángel
--- NOTE | 2017-03-31 09:27 | NUR ---
ROCKY HAM [id number] Please refer to the physician's history and physical for past medical history, comorbid conditions, and allergies. Diagnosis: CELLULITIS OF RT LEG FAILURE OF OUTPATIENT TREATM Alec Score: 19,LOW OR NO RISK WOUND DESCRIPTIONS: Location of the wound: RLE Type of wound: traumatic Thickness: Full Size: 8.0CM X 5.0CM X 0.1CM Tunneling: NONE Undermining: NONE Sinus Tract: NONE Presence of Exudate: Serosanguineous Amount: Light Color: Yellow Odor: None Periwound Skin Appearance: Erythema, EDEMA Wound edges: APPROXIMATED Pain (associated with wound): NONE AT TIME OF ASSESSMENT How does patient state this happened? PT STATED SHE HAS BEEN FOLLOWING UP IN THE WOUND CARE CENTER WITH DR. RODRIGUEZ AND WAS SENT TO THE ER YESTERDAY. Surface the patient is resting on: Isoflex SKIN PREVENTION RECOMMENDATION: 1. Pressure redistribution support surface as appropriate 2. Elevate heels 3. Remove boots/TEDS every shift and reapply 4. Head of bed 30 degrees as tolerated 5. Assess nutrition and hydration 6. Manage moisture 7. Avoid the use of containment devices while in bed 8. Use absorptive products on surfaces limit layers of linens on bed 9. Turn and reposition every 1-2 hours in bed and every 1 hour in chair as tolerated 10. Weight shifts every 15 minutes while up in chair 11. Offloading with pillows or device to keep heels elevated off bed 12. Monitor skin at least every shift 13. Inspect under medical devices twice a day WOUND TREATMENT RECOMMENDATIONS: Spoke with the wound care center they stated they were currently using adapt and 4x4 and wrap with kerlix they felt that she might have an allergy to arglase powder. Consult podiatry to follow for wound care. Cleanse RLE with nss and apply adaptic cover with 4x4 gauze then wrap with kerlix daily and change prn for soiling. Spoke with Dr. Jovanny Costa regarding this patient he asked if I was able to put the wound care orders and he will consult podiatry.
--- NOTE | 2017-03-31 10:57 | NUR ---
PHYSICAL THERAPY PAtient evaluated on 5, full evaluation to follow. Continue with PT as per plan of care with fall precautions. Home with family as prior and home health RN. Home health PT prn. PAtient is moderate complexity via chart review, tests and evaluation: 16625. Thank you for this referral. Lilibeth gA,PT
--- NOTE | 2017-03-31 11:14 | NUR ---
Occupational Therapy evaluation completed on 5 with full eval to follow. Precautions include IV UE, RLE wound, low complexity level 44561. Recommend no further OT at this time. Patient performs self care as able and reports she needs assist w/ toilet hygiene d/t IV. Recommend d/t to home w/ HH SN and passport as PLOF. Thank you for this referral. Arleth Barlow OTR/L
[2017-03-31 12:00] VITALS: BP 122/68
--- NOTE | 2017-03-31 12:47 | NUR ---
DR. BUTLER NOTIFIED OF CONSULT, IN TO SEE PT. CONTINUE CURRENT WOUND ORDERS.
--- NOTE | 2017-03-31 14:13 | NUR ---
DR. PATTERSON RETURNED CALL, WILL SEE PT. LATER TODAY.
[2017-03-31 16:00] VITALS: BP 150/66
--- NOTE | 2017-03-31 19:19 | NUR ---
NOTIFIED OF ARTIAL U/S RESULTS. ALSO NOTIFIED THAT URINE AND STOOL HAVE NOT BEEN COLLECTED D/T CONTAMINATION WILL TRY TO COLLECT AGAIN
[2017-03-31 20:00] VITALS: BP 146/70
--- NOTE | 2017-03-31 20:00 | NUR ---
RESTING IN BED WITH HOB SLIGHTLY ELEVATED. HEP LOCK INTACT TO RIGHT A/C. PT. VOICES NO C/O AT THIS TIME. CALL LIGHT WITHIN REACH. FAMILY VISITING.
[2017-04-01] VITALS: BP 133/57
--- NOTE | 2017-04-01 | NUR ---
ASSIST OF 1 BACK TO BED FROM BSC. UNABLE TO OBTAIN URINE OR STOOL AT THIS TIME.
[2017-04-01 05:47] LABS: BASO % 0.3 % (0.0-1.0); EOS # 0.6 10*3/uL (0.0-0.4); EOS % 7.6 % (1.0-4.0); HEMATOCRIT 29.7 % (37.0-47.0); HEMOGLOBIN 9.8 g/dl (12.0-16.0); LYMPH # 1.3 10*3/uL (1.3-4.4); LYMPH % 17.9 % (27.0-41.0); MEAN CELL VOLUME 92.5 fl (81.0-99.0); MEAN CORPUSCULAR HGB 30.5 pg (27.0-31.0); MEAN PLATELET VOLUME 10.8 fl (9.6-12.3); MONO # 0.6 10*3/uL (0.1-1.0); MONO % 7.6 % (3.0-9.0); NEUT # 4.9 10*3/uL (2.3-7.9); NEUT % 66.2 % (47.0-73.0); PLATELET COUNT AUTOMATED 149 10*3/uL (130-400); RED BLOOD COUNT 3.21 10*6/uL (4.10-5.10); RED CELL DISTRI WIDTH 13.2 % (0-14.5); WHITE BLOOD COUNT 7.5 10*3/uL (4.8-10.8)
[2017-04-01 06:03] LABS: CREATININE 1.4 mg/dL (0.55-1.02)
[2017-04-01 06:05] LABS: ALBUMIN 2.5 gm/dl (3.1-4.5); MAGNESIUM 2.4 mg/dL (1.5-2.1); PHOSPHOROUS 2.9 mg/dL (2.5-4.9)
[2017-04-01 06:07] LABS: INTERNATIONAL NORM RATIO 2.1 (2.0-3.5)
[2017-04-01 06:08] LABS: CREATININE 1.4 mg/dL (0.55-1.02)
[2017-04-01 08:00] VITALS: BP 123/47
[2017-04-01 12:00] VITALS: BP 144/59
[2017-04-01 16:00] VITALS: BP 139/59
[2017-04-01 20:00] VITALS: BP 143/60
[2017-04-02] VITALS: BP 143/58
--- NOTE | 2017-04-02 00:27 | NUR ---
PATIENT RESTING IN BED WITH NO NEEDS MADE. RESPS EASY AND REGULAR. BED IN LOWEST POSITION, CALL LIGHT INR EACH
--- NOTE | 2017-04-02 03:34 | NUR ---
PATIENT RESTING IN BED WITH EYES CLOSED. RESPS EASY AND REGULAR. BED IN LOWEST POSITION, CALL LIGHT IN REACH
[2017-04-02 06:13] LABS: HEMATOCRIT 29.6 % (37.0-47.0); HEMOGLOBIN 9.4 g/dl (12.0-16.0); MEAN CELL VOLUME 92.5 fl (81.0-99.0); MEAN CORPUSCULAR HGB 29.4 pg (27.0-31.0); MEAN CORPUSCULAR HGB CONC 31.8 g/dl (33.0-37.0); MEAN PLATELET VOLUME 10.7 fl (9.6-12.3); PLATELET COUNT AUTOMATED 170 10*3/uL (130-400); WHITE BLOOD COUNT 7.5 10*3/uL (4.8-10.8)
[2017-04-02 06:28] LABS: ALBUMIN 2.4 gm/dl (3.1-4.5); CREATININE 1.3 mg/dL (0.55-1.02); MAGNESIUM 2.4 mg/dL (1.5-2.1); PHOSPHOROUS 3.1 mg/dL (2.5-4.9); POTASSIUM 3.2 mmol/L (3.5-5.1)
[2017-04-02 06:33] LABS: INTERNATIONAL NORM RATIO 2.3 (2.0-3.5)
[2017-04-02 07:28] LABS: PLATELET SUFFICIENCY NORMAL (NORMAL); ROULEAUX SLIGHT; TOTAL CELLS COUNTED 100 #CELLS
[2017-04-02 08:00] VITALS: BP 153/77
[2017-04-02 12:00] VITALS: BP 112/73
[2017-04-02 12:53] LABS: BILIRUBIN NEGATIVE (NEGATIVE); BLOOD TRACE-INTACT (NEGATIVE); CLARITY CLEAR (CLEAR); COLOR YELLOW (YELLOW); GLUCOSE NEGATIVE (NEGATIVE); KETONE NEGATIVE (NEGATIVE); LEUKO ESTERASE NEGATIVE (NEGATIVE); NITRITE NEGATIVE (NEGATIVE); PH 5.5 (5.0-9.0); SPECIFIC GRAVITY 1.015 (1.005-1.030); UROBILINOGEN 0.2 E.U./dl (0.2-1.0)
[2017-04-02 13:02] LABS: BACTERIA TRACE; WBC 0-2 wbc/hpf (0-5)
[2017-04-02 16:00] VITALS: BP 149/72
--- NOTE | 2017-04-02 19:30 | NUR ---
ASSUMED CARE OF PT AT THIS TIME, CALL LIGHT WITH IN REACH
[2017-04-02 20:00] VITALS: BP 152/59
--- NOTE | 2017-04-02 23:47 | NUR ---
PT RESTING IN BED, RESPS EASY AND NONLABORED, CALL LIGHT WITH IN REACH, BED ALARM ARMED
[2017-04-03] VITALS: BP 152/71
--- NOTE | 2017-04-03 03:59 | NUR ---
RESTIN IN BED WITH EYES CLOSED RESPS EASY AND NONLABORED WITH NO S/S OF DISTRESS CALL LIGHT WITH IN REACH
[2017-04-03 06:20] LABS: HEMATOCRIT 29.3 % (37.0-47.0); HEMOGLOBIN 9.5 g/dl (12.0-16.0); MEAN CORPUSCULAR HGB 30.2 pg (27.0-31.0); MEAN CORPUSCULAR HGB CONC 32.4 g/dl (33.0-37.0); MEAN PLATELET VOLUME 10.4 fl (9.6-12.3); PLATELET COUNT AUTOMATED 181 10*3/uL (130-400); RED BLOOD COUNT 3.15 10*6/uL (4.10-5.10); RED CELL DISTRI WIDTH 13.2 % (0-14.5); WHITE BLOOD COUNT 7.9 10*3/uL (4.8-10.8)
[2017-04-03 06:32] LABS: ALBUMIN 2.4 gm/dl (3.1-4.5); BUN 20 mg/dl (7-24); CHLORIDE 105 mmol/L (98-107); CREATININE 1.07 mg/dL (0.55-1.02); MAGNESIUM 2.3 mg/dL (1.5-2.1); POTASSIUM 3.8 mmol/L (3.5-5.1); SODIUM 140 mmol/L (136-145)
[2017-04-03 06:40] LABS: INTERNATIONAL NORM RATIO 2.1 (2.0-3.5)
[2017-04-03 07:05] LABS: ATYPICAL LYMPHS 1 % (0-0); BASOPHILS 1 % (0-1); PLATELET SUFFICIENCY NORMAL (NORMAL); POLYCHROMASIA SLIGHT; TOTAL CELLS COUNTED 100 #CELLS
--- NOTE | 2017-04-03 07:53 | NUR ---
PHYSICAL THERAPY Mckenna seen this AM for her therapy session and said after she has her breakfast. JOHN HEARN PURCHASE PRICE ANALYST.
[2017-04-03 08:00] VITALS: BP 157/70
--- NOTE | 2017-04-03 10:51 | NUR ---
SPOKE WITH DR. LAI. HE ADKED TO SEE IF ID IS CLEAR TO SEND THE PATIENT HOME ON PO ABX. NO OTHER COCNERNS FROM THE
--- NOTE | 2017-04-03 10:59 | NUR ---
PHYSICAL THERAPY Back this AM to treat Mckenna. All transfers were independent. Gait total 130' X 2, one sitting rest, no LOB and supervision x 1. present, then 'lisette came in and said that Mckenna is going to bed D/C this afternoon home. JOHN HEARN RESAW TAILER.
--- NOTE | 2017-04-03 11:44 | NUR ---
PATIENT CLEARED BY PODIATRY FOR DC. NO CONCERNS FROM DR. BUTLER WHILE HE WAS IN TO EVALUATE THE PATIENT.
[2017-04-03 12:00] VITALS: BP 153/71
--- NOTE | 2017-04-03 12:21 | NUR ---
ID CLEARED THE PATIENT FOR DISCHARGE ORDERING AMOXICILLIN 500MG PO Q6H FOR ADDITIONAL 10 DAYS. NO OTHER CONCERNS FROM October FROM ID ON THE PATIENT.
[2017-04-03] MEDS ORDERED: AMOXICILLIN500 M3 PO ×2 (12:28→15:03)
--- NOTE | 2017-04-03 14:36 | NUR ---
PATIENT CLEARED BY NEPHROLOGY. NO CONCRNS FROM THE CARE TEAM.
--- NOTE | 2017-04-03 14:58 | NUR ---
Patient is being discharged to home to resume home health via [facility]. Received order, faxed clincals.
--- NOTE | 2017-04-03 16:00 | NUR ---
PATIENT IS DC TO HOME. IV ACCESS REMOVED. MS PATIENT. PATIENT REFUSED DISCHARGE PICTURES.
--- NOTE | 2017-04-03 16:31 | NUR ---
Discharge instructions reviewed with patient/family. Patient receptive and verbalizes understanding. Follow-up care arranged. Written instructions given to patient/family. BALBIR CHAPMAN
--- NOTE | 2017-04-04 07:48 | NUR ---
PHYSICAL THERAPY CO-SIGN I approve of the Phyical Therapy notes written above. ZENAIDA LEDBETTER PT
== END 2017-04-03 16:31 | disposition home health service (06) | DRG 602 ==
LOC: ED 13:40 → EDHOLD 15:08 → 5E 15:08
PROVIDERS: Emergency Medicine; Internal Medicine; Internal Medicine Nephrology; Nurse Practitioner; ADMIT Internal Medicine
DX: L03.115 Cellulitis of right lower limb (principal); N17.0 Acute kidney failure with tubular necrosis; E43 Unspecified severe protein-calorie malnutrition; D68.9 Coagulation defect, unspecified; I13.0 Hypertensive heart and chronic kidney disease with heart failure and stage 1 through stage 4 chronic kidney disease, or unspecified chronic kidney disease; E87.8 Other disorders of electrolyte and fluid balance, not elsewhere classified; I95.9 Hypotension, unspecified; I50.32 Chronic diastolic (congestive) heart failure; E87.1 Hypo-osmolality and hyponatremia; L97.919 Non-pressure chronic ulcer of unspecified part of right lower leg with unspecified severity; Z68.28 Body mass index [BMI] 28.0-28.9, adult; N18.3 Chronic kidney disease, stage 3 (moderate); R00.1 Bradycardia, unspecified; D64.9 Anemia, unspecified; E87.6 Hypokalemia; R73.9 Hyperglycemia, unspecified; B95.0 Streptococcus, group A, as the cause of diseases classified elsewhere; J44.9 Chronic obstructive pulmonary disease, unspecified; F32.9 Major depressive disorder, single episode, unspecified; F79 Unspecified intellectual disabilities; E78.5 Hyperlipidemia, unspecified; E03.9 Hypothyroidism, unspecified; I48.0 Paroxysmal atrial fibrillation; E66.09 Other obesity due to excess calories; E83.41 Hypermagnesemia; E53.8 Deficiency of other specified B group vitamins; R19.7 Diarrhea, unspecified; Z88.5 Allergy status to narcotic agent; Z88.1 Allergy status to other antibiotic agents; Z88.8 Allergy status to other drugs, medicaments and biological substances; Z88.6 Allergy status to analgesic agent; Z79.01 Long term (current) use of anticoagulants; Z79.899 Other long term (current) drug therapy; Z82.49 Family history of ischemic heart disease and other diseases of the circulatory system; Z80.3 Family history of malignant neoplasm of breast; Z80.1 Family history of malignant neoplasm of trachea, bronchus and lung; Z80.51 Family history of malignant neoplasm of kidney; Z83.3 Family history of diabetes mellitus

== ENCOUNTER → 2017-03-30 | Outpatient (CLI) | payer MEDICARE, MEDICAID ==
[~2017-03-30] MED LIST changes: +AMOXICILLIN500 M3 PO
--- NOTE | ~2017-03-30 | PR ---
[place], [place] PROGRESS NOTE NAME: ROCKY HAM [facility] #: [id number] UNIT #: [id number] ROOM: DOCTOR: MICHAEL AdairUZAIR BIRTHDATE: [birth year] DOS: 03/30/2017 CHIEF COMPLAINT: Open wound of the right lower extremity. HISTORY OF PRESENT ILLNESS: This is a 71-year-old female with a traumatic wound to the right lower extremity that has been very, very slow to heal. She has had a lot of trouble with allergies and sensitivities to topicals. She was seen in the wound clinic 2 days ago. At that time, there was a new pustule that had formed. It was not even near the original wound, but a pustule was present more proximally to the leg and that area was debrided of pus and culture was obtained. The patient was started on Arglaes powder and Maxorb; however, the culture did grow beta-hemolytic strep, we discussed the results back today. The patient had been started on doxycycline. She comes in today with much worsening symptoms, increased erythema. There are multiple tiny pustules throughout the entire lower half of the leg. Her entire leg is swollen and warm and it is erythematous. It is not tender to touch. She denies any fever but does have a low-grade temp on her vitals today at 99.3. She offers no other specific complaints. OBJECTIVE: VITAL SIGNS: Temperature 99.3, pulse 56, blood pressure 100/40 and respirations 16. SKIN: The wound is measuring bigger, it is 8 x 25 x 0.1. There are multiple pustules as stated above. These areas were cleaned up with a curette. There is also some devitalized tissue, fibrin, slough and subcutaneous tissue that was removed as well with a curette. All the pustules were removed and there was cjmcyum-la-ljojwjqx bleeding that was controlled with pressure. ASSESSMENT AND PLAN: Worsening wound infection with beta-hemolytic strep. Due to the nature of such worsening and appearance of the wound and failure of oral antibiotics, I would recommend hospital admission for IV antibiotics. Once again, the culture was sensitive to Levaquin and resistant to erythromycin and clindamycin and sensitive to penicillin products and vancomycin. THE PATIENT DOES HAVE A HISTORY OF MULTIPLE DRUG ALLERGIES WELL, so we will go ahead and have the patient go to the Emergency Room for admission. I did speak to the Emergency Room doctor, Dr. Noriega, to give her report. She is on Coumadin as well, which may make antibiotic selection a little bit more tricky and she has multiple allergies as well. Also, I think that she probably has sensitivity to silver products, so I would avoid using that as a dressing, perhaps maybe just sticking with Xeroform for now until further improvement in the pustules. Also, I would hesitate to use Bactroban as we did have her on that and I believe she did have some sensitivity to that as well. So, the patient is going to be admitted to the hospital. [place], [place] PROGRESS NOTE NAME: FATOUMATAROCKY Jaspreet UNIT #: [id number] ROOM: DOCTOR: UZAIR RODRIGUEZ M.D. BIRTHDATE: [birth year] UZAIR RODRIGUEZ MD CM:PNTRANS [id number] UZAIR RODRIGUEZ M.D. 03/30/17 1439 interface
== END | disposition home or self-care (01) ==
LOC: WOUNDCARE 00:52
DX: I87.2 Venous insufficiency (chronic) (peripheral) (principal); L97.812 Non-pressure chronic ulcer of other part of right lower leg with fat layer exposed

== ENCOUNTER → 2017-04-05 | Outpatient (CLI) | payer MEDICARE, MEDICAID ==
[~2017-04-05] MED LIST changes: +AMOXICILLIN500 M3 PO; +DOXYCYCLINE100 M3 PO
== END | disposition home or self-care (01) ==
LOC: WOUNDCARE 01:58
DX: I87.331 Chronic venous hypertension (idiopathic) with ulcer and inflammation of right lower extremity (principal); L97.812 Non-pressure chronic ulcer of other part of right lower leg with fat layer exposed; E78.5 Hyperlipidemia, unspecified; E03.9 Hypothyroidism, unspecified; J44.9 Chronic obstructive pulmonary disease, unspecified; I48.91 Unspecified atrial fibrillation; I13.0 Hypertensive heart and chronic kidney disease with heart failure and stage 1 through stage 4 chronic kidney disease, or unspecified chronic kidney disease; N18.3 Chronic kidney disease, stage 3 (moderate); I50.9 Heart failure, unspecified; Z87.891 Personal history of nicotine dependence

== ENCOUNTER → 2017-04-07 | Outpatient (CLI) | payer MEDICARE, MEDICAID | END | disposition home or self-care (01) | LOC: WOUNDCARE 11:43 | DX: I87.331 Chronic venous hypertension (idiopathic) with ulcer and inflammation of right lower extremity (principal); L97.812 Non-pressure chronic ulcer of other part of right lower leg with fat layer exposed; I11.0 Hypertensive heart disease with heart failure; I50.9 Heart failure, unspecified; E03.9 Hypothyroidism, unspecified; J44.9 Chronic obstructive pulmonary disease, unspecified; I48.91 Unspecified atrial fibrillation; Z87.891 Personal history of nicotine dependence ==

== ENCOUNTER 2017-04-08 13:02 | Emergency (ER) | payer MEDICARE, MEDICAID ==
--- NOTE | ~2017-04-08 | EKG ---
[place], [place] ELECTROCARDIOGRAM REPORT NAME: ROCKY HAM UNIT #: [id number] ROOM: DOCTOR: JONAH BACH,BUBBA BIRTHDATE: [birth year] DOS: 04/08/2017 TIME: 1638 hours. IMPRESSION: 1. Atrial fibrillation with controlled ventricular rate. 2. 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 3. Prolonged QT interval. BUBBA MCKENZIE MD CM:EKGRPT:ELECTROCARDIOGRAM REPORT [id number] BUBBA MCKENZIE MD
[2017-04-08 13:54] LABS: BASO % 0.2 % (0.0-1.0); EOS # 0.1 10*3/uL (0.0-0.4); EOS % 0.6 % (1.0-4.0); HEMATOCRIT 29.1 % (37.0-47.0); HEMOGLOBIN 9.2 g/dl (12.0-16.0); LYMPH # 1.2 10*3/uL (1.3-4.4); LYMPH % 11.9 % (27.0-41.0); MEAN CELL VOLUME 93.3 fl (81.0-99.0); MEAN CORPUSCULAR HGB 29.5 pg (27.0-31.0); MEAN CORPUSCULAR HGB CONC 31.6 g/dl (33.0-37.0); MEAN PLATELET VOLUME 10.4 fl (9.6-12.3); MONO # 0.7 10*3/uL (0.1-1.0); NEUT % 79.3 % (47.0-73.0); PLATELET COUNT AUTOMATED 207 10*3/uL (130-400); RED BLOOD COUNT 3.12 10*6/uL (4.10-5.10); RED CELL DISTRI WIDTH 13.5 % (0-14.5); WHITE BLOOD COUNT 10.1 10*3/uL (4.8-10.8)
[2017-04-08 14:14] LABS: ALBUMIN 2.8 gm/dl (3.1-4.5); CREATININE 1.32 mg/dL (0.55-1.02); POTASSIUM 3.6 mmol/L (3.5-5.1); TOTAL PROTEIN 7.5 gm/dL (6.4-8.2)
== END 2017-04-08 17:35 | disposition home or self-care (01) ==
LOC: ED 13:02
PROVIDERS: Emergency Medicine
DX: I13.0 Hypertensive heart and chronic kidney disease with heart failure and stage 1 through stage 4 chronic kidney disease, or unspecified chronic kidney disease (principal); N18.3 Chronic kidney disease, stage 3 (moderate); I50.9 Heart failure, unspecified; I48.91 Unspecified atrial fibrillation; J44.9 Chronic obstructive pulmonary disease, unspecified; E03.9 Hypothyroidism, unspecified; E66.9 Obesity, unspecified; Z98.890 Other specified postprocedural states; Z79.899 Other long term (current) drug therapy; Z88.1 Allergy status to other antibiotic agents; Z88.5 Allergy status to narcotic agent; Z88.8 Allergy status to other drugs, medicaments and biological substances; Z99.81 Dependence on supplemental oxygen

== ENCOUNTER → 2017-04-17 | Outpatient (CLI) | payer MEDICARE, MEDICAID ==
[~2017-04-17] MED LIST changes: +COZAAR50 M1 PO; +DIPHENHYDRAMINE25 M2 PO; +LASIX20 MG PO; +LOTRISONE30 ML T
== END | disposition home or self-care (01) ==
LOC: WOUNDCARE 04-14 08:30 → CARD 03:23 → WOUNDCARE 03:23
DX: I08.3 Combined rheumatic disorders of mitral, aortic and tricuspid valves (principal); I50.31 Acute diastolic (congestive) heart failure; I87.331 Chronic venous hypertension (idiopathic) with ulcer and inflammation of right lower extremity; L97.812 Non-pressure chronic ulcer of other part of right lower leg with fat layer exposed; I87.2 Venous insufficiency (chronic) (peripheral)

== ENCOUNTER 2017-04-18 13:01 | Inpatient (IN) | payer MEDICARE, MEDICAID ==
[~2017-04-18] VITALS: Ht 142.2 cm; Wt 81.4 kg
--- NOTE | ~2017-04-18 | CON ---
[place], [place] REPORT OF CONSULTATION NAME: ROCKY HAM UNIT #: [id number] ROOM: 425 DOCTOR: RAFAL AGARWAL PRIYA BIRTHDATE: [birth year] DOS: 04/19/2017 HISTORY OF PRESENT ILLNESS: This is a 71-year-old female who was admitted for right lower extremity cellulitis. She was last admitted in March and treated with vancomycin and Zosyn, which improved her cellulitis at that time. She states she started noticing swelling and erythema last Monday. She started noticing the redness and swelling on Monday. She states that she had her wound care nurse come to the house and have the bandages changed and at that time, the leg was feeling fine. The right lower extremity started to increase in swelling and redness again today and she was recommended to come to the Emergency Department. She states that her house was infested with bedbugs, but does not know if she has been bitten. She has been admitted for IV antibiotics for the infection. She was on amoxicillin prior to her admission. PAST MEDICAL HISTORY: Asthma, AFib, chronic diastolic congestive heart failure, CKD, COPD, depression, essential hypertension, hyperlipidemia, hypothyroidism, morbid obesity, vitamin B12, vitamin D deficiency. PAST SURGICAL HISTORY: History of right ankle fracture. SOCIAL HISTORY: Denies any alcohol use, illicit drug use or tobacco use. ALLERGIES: AMOXICILLIN, CEFDINIR, CODEINE, ERYTHROMYCIN, METFORMIN, MORPHINE. MEDICATIONS: Please see MAR for current list of medications. REVIEW OF SYSTEMS: GENERAL: Chills, denies fevers, weight loss, weight gain. HEENT: Denies vision change, hearing loss, mouth pain, nose pain, dysphagia. CARDIOVASCULAR: Admits to right lower extremity edema. Denies chest pain, palpitations, diaphoresis. RESPIRATORY: Denies shortness of breath, cough, hemoptysis, wheezing, dyspnea on exertion. ABDOMEN: Abdominal pain, nausea, vomiting, diarrhea, constipation. GENITOURINARY: Denies dysuria, hematuria, increased frequency or urgency. NEUROLOGIC: Denies lightheadedness, dizziness, denies confusion. PSYCHIATRIC: Denies depression, anxiety, or substance abuse. ENDOCRINE: Reports cold intolerance. Denies ____. Denies heat intolerance. SKIN: Admits to right lower extremity edema, erythema, denies any ulcers. PHYSICAL EXAMINATION: VITAL SIGNS: Temperature 98.2, pulse 67, respiratory rate 18, blood pressure 123/56. LABORATORY DATA: White count 6.6, hemoglobin 8.7, hematocrit 27.5, platelets 202. IMAGING: Right lower extremity venous duplex was negative for a DVT. Lower extremity physical examination: DP and PT pulses are faintly palpable, [place], [place] REPORT OF CONSULTATION NAME: ROCKY HAM UNIT #: [id number] ROOM: [facility] DOCTOR: RAFAL AGARWAL PRIYA BIRTHDATE: [birth year] bilateral. CFT is less than 5 seconds to digits 1 through 5 bilaterally. There is flaky skin noted to the right lower extremity. There is increased erythema, edema and calor noted to the right lower extremity compared to left lower extremity at this time. NEUROLOGIC: Protective sensation intact to digits 1 through 5 bilateral. Decreased muscle tone noted to bilateral lower extremities. MUSCULOSKELETAL: Decreased ankle joint range of motion noted to bilateral extremities. There is 4/5 muscle strength noted in bilateral lower extremities. No pain on palpation to the right lower extremity calf. DERMATOLOGIC: There is flaky skin noted to the right lower extremity. There is increased edema, erythema and calor noted to the right lower extremity. There is seeping wound noted to the lateral aspect of the right lower extremity. It is seeping serous drainage. It is partial thickness in nature, going down with a breach of the epidermal tissue. ASSESSMENT AND PLAN: 1. Cellulitis, right lower extremity. 2. Venous insufficiency, bilateral extremities. 3. History of right ankle fracture. 4. Equinus contracture, bilateral lower extremities. A. The patient is seen and examined. B. Ordered arterial studies of the right lower extremity. C. Recommend compression wrap; however, prior to discharge as of now, just to monitor cellulitis. It is better to leave the legs unwrapped. D. Recommend applying Betadine to the weeping wound to the right lower extremity and wrap with 4 x 4s and Kerlix. 5. Weightbearing as tolerated. 6. We will continue to follow. BING AGARWAL DPM CM:CONSTR:REPORT OF CONSULTATION 1334 04/19/17 2254 interface
[~2017-04-18 13:01] MED LIST changes: -COZAAR50 M1 PO; -DIPHENHYDRAMINE25 M2 PO; -LASIX20 MG PO; -LOTRISONE30 ML T
[2017-04-18 13:07] VITALS: BP 152/63
[2017-04-18 14:28] LABS: BASO % 0.2 % (0.0-1.0); EOS # 0.5 10*3/uL (0.0-0.4); EOS % 4.8 % (1.0-4.0); HEMATOCRIT 31.5 % (37.0-47.0); HEMOGLOBIN 9.7 g/dl (12.0-16.0); LYMPH # 1.7 10*3/uL (1.3-4.4); LYMPH % 17.2 % (27.0-41.0); MEAN CELL VOLUME 94.6 fl (81.0-99.0); MEAN CORPUSCULAR HGB 29.1 pg (27.0-31.0); MEAN CORPUSCULAR HGB CONC 30.8 g/dl (33.0-37.0); MEAN PLATELET VOLUME 10.2 fl (9.6-12.3); MONO # 0.6 10*3/uL (0.1-1.0); MONO % 5.8 % (3.0-9.0); NEUT # 6.9 10*3/uL (2.3-7.9); NEUT % 71.6 % (47.0-73.0); PLATELET COUNT AUTOMATED 266 10*3/uL (130-400); RED BLOOD COUNT 3.33 10*6/uL (4.10-5.10); RED CELL DISTRI WIDTH 14.6 % (0-14.5); WHITE BLOOD COUNT 9.6 10*3/uL (4.8-10.8)
[2017-04-18 14:37] LABS: ACT PARTIAL THROMBO TIME 35.7 SECONDS (20.8-31.5); INTERNATIONAL NORM RATIO 2.6 (2.0-3.5)
[2017-04-18 14:44] LABS: ALBUMIN 2.9 gm/dl (3.1-4.5); CREATININE 1.47 mg/dL (0.55-1.02); POTASSIUM 3.5 mmol/L (3.5-5.1); TOTAL PROTEIN 7.6 gm/dL (6.4-8.2)
--- NOTE | 2017-04-18 15:11 | NUR ---
PT DENIES NEED TO VOID AT THIS TIME D/T RECENT UNCOLLECTED SPECIMIN.
[2017-04-18 15:46] LABS: BILIRUBIN NEGATIVE (NEGATIVE); BLOOD NEGATIVE (NEGATIVE); CLARITY CLEAR (CLEAR); COLOR YELLOW (YELLOW); GLUCOSE NEGATIVE (NEGATIVE); KETONE NEGATIVE (NEGATIVE); LEUKO ESTERASE NEGATIVE (NEGATIVE); NITRITE NEGATIVE (NEGATIVE); PH 5.5 (5.0-9.0); UROBILINOGEN 0.2 E.U./dl (0.2-1.0)
[2017-04-18 15:52] LABS: BACTERIA TRACE
[2017-04-18 18:07] VITALS: BP 148/60
--- NOTE | 2017-04-18 18:48 | NUR ---
MSATime: 1844 A 71 year old FEMALE admitted to 4E under services of DR. SHENA BACH,FATEMEH. Pt. arrived via stretcher from ER. Chief complaint: Cellulitis non-healing wound of lower right extremity. DAMIAN AUSTIN
[2017-04-18 19:00] VITALS: BP 151/95
--- NOTE | 2017-04-18 19:10 | NUR ---
I ATTEMPTED TO COMPLETE THE MEDICATION RECONCILIATION BUT THE PHARMACY WAS CLOSED.
--- NOTE | 2017-04-18 19:48 | NUR ---
MED REC. COMPLETED WITH KIKI HAM. WILL CONTACT PHYSICIAN.
[2017-04-19] VITALS: BP 116/50
[2017-04-19 06:05] LABS: BASO % 0.2 % (0.0-1.0); EOS # 0.4 10*3/uL (0.0-0.4); EOS % 6.4 % (1.0-4.0); HEMATOCRIT 27.5 % (37.0-47.0); HEMOGLOBIN 8.7 g/dl (12.0-16.0); LYMPH # 1.4 10*3/uL (1.3-4.4); LYMPH % 20.4 % (27.0-41.0); MEAN CELL VOLUME 95.2 fl (81.0-99.0); MEAN CORPUSCULAR HGB 30.1 pg (27.0-31.0); MEAN CORPUSCULAR HGB CONC 31.6 g/dl (33.0-37.0); MEAN PLATELET VOLUME 10.5 fl (9.6-12.3); MONO # 0.5 10*3/uL (0.1-1.0); MONO % 7.7 % (3.0-9.0); NEUT # 4.3 10*3/uL (2.3-7.9); PLATELET COUNT AUTOMATED 202 10*3/uL (130-400); RED BLOOD COUNT 2.89 10*6/uL (4.10-5.10); RED CELL DISTRI WIDTH 14.6 % (0-14.5); WHITE BLOOD COUNT 6.6 10*3/uL (4.8-10.8)
[2017-04-19 06:23] LABS: CREATININE 1.42 mg/dL (0.55-1.02); MAGNESIUM 2.4 mg/dL (1.5-2.1); PHOSPHOROUS 3.6 mg/dL (2.5-4.9); POTASSIUM 3.5 mmol/L (3.5-5.1)
[2017-04-19 06:38] LABS: INTERNATIONAL NORM RATIO 2.5 (2.0-3.5)
[2017-04-19 08:00] VITALS: BP 123/56
--- NOTE | 2017-04-19 08:00 | NUR ---
SHIFT ASSESSMENT COMPLETE. PATIENT RESTING IN BED. POX WAS 90% ON ROOM AIR. o2 APPLIED AT 2L BY NASAL CANNULA. PATIENT VOICES NO COMPLAINTS AT THIS TIME. BED IN LOW POSITION. CALL LIGHT WITHIN REACH.
--- NOTE | 2017-04-19 08:30 | NUR ---
Marine Service Operator in to talk to patient. Patient states lives at HOME with SISTERS BROTHER IN LAW. There are 0 steps in the home. Physician: DR CHATTERJEE Pharmacy: Home health services: [facility] MONDAY AND MONDAY. [facility] NURSE Patient's level of ADLs: MODERATE ASSIST Patient has working utilities: YES DME: NONE Follow-up physician's appointment after d/c: PREFERS TO MAKE HER OWN APPT Does patient want to access PORTAL?: Discharge plan HOME. [facility] FAMILY PRESENT. DISCUSSED SNF STAY. ADAMANTLY REFUSES.
[2017-04-19 16:00] VITALS: BP 118/61
--- NOTE | 2017-04-19 16:13 | NUR ---
P[employer]SPORT CUSTOM TAILOR APPRENTICE: JAVAN XIE [phone]
--- NOTE | 2017-04-19 16:50 | NUR ---
FAMILY HERE AND REQUEST ID CONSULT. DR REBOLLAR NOTIFIED AND STATES HE WILL PUT ORDER IN.
--- NOTE | 2017-04-19 17:00 | NUR ---
DR LOPEZ'S ANSWERING SERVICE NOTIFIED OF CONSULT.
[2017-04-19 20:00] VITALS: BP 137/78
--- NOTE | 2017-04-19 22:00 | NUR ---
PT RESTING QUIETLY IN BED. BED ALARM ON. LIGHT REMAINS ON PER PT REQUEST. PT DENIES PAIN.
[2017-04-20] VITALS: BP 118/64
--- NOTE | 2017-04-20 00:26 | NUR ---
SPOKE WITH DR. YOUSSEF AT THIS TIME, THIS NURSE HAS A SIGNED COPY OF A DNR-CC PAPER SIGNED BY DR. MCKEON FROM 2016 AND WAS PLACED ON THE CHART AND THE PATIENT IS MONITORED. DR. YOUSSEF STATED HE WILL SWITCH HER TO UNMONITORED
--- NOTE | 2017-04-20 00:55 | NUR ---
24 HR chart check completed.
[2017-04-20 06:04] LABS: BASO % 0.5 % (0.0-1.0); EOS # 0.5 10*3/uL (0.0-0.4); HEMATOCRIT 28.6 % (37.0-47.0); LYMPH # 1.4 10*3/uL (1.3-4.4); LYMPH % 24.1 % (27.0-41.0); MEAN CORPUSCULAR HGB 30.2 pg (27.0-31.0); MEAN CORPUSCULAR HGB CONC 31.5 g/dl (33.0-37.0); MEAN PLATELET VOLUME 10.4 fl (9.6-12.3); MONO # 0.5 10*3/uL (0.1-1.0); MONO % 8.4 % (3.0-9.0); NEUT # 3.4 10*3/uL (2.3-7.9); NEUT % 58.7 % (47.0-73.0); PLATELET COUNT AUTOMATED 209 10*3/uL (130-400); RED BLOOD COUNT 2.98 10*6/uL (4.10-5.10); RED CELL DISTRI WIDTH 14.8 % (0-14.5); WHITE BLOOD COUNT 5.8 10*3/uL (4.8-10.8)
[2017-04-20 06:24] LABS: INTERNATIONAL NORM RATIO 2.4 (2.0-3.5)
[2017-04-20 06:31] LABS: POTASSIUM 3.5 mmol/L (3.5-5.1)
[2017-04-20 06:35] LABS: CREATININE 1.41 mg/dL (0.55-1.02)
[2017-04-20 08:00] VITALS: BP 128/53
--- NOTE | 2017-04-20 09:17 | NUR ---
PATIENT IS RESTING COMFORTABLE IN BED. PATIENT DENIES ANY PAIN OR DISCOMFORT IN RIGHT LOWER EXTREMITY. PATIENT HAS SCANT SEROUS DRAINAGE COMING FROM THE INFLAMED LEG. PATIENT DENIES ANY SOB AND HAS NO FURTHER REQUESTS AT THIS TIME. SEE SHIFT ASSESMENT. CALL LIGHT IS WITHIN REACH.
--- NOTE | 2017-04-20 11:56 | NUR ---
PHYSICAL THERAPY Patient requests no PT this date. Thank you for this referral. Lilibeth Ag,PT
--- NOTE | 2017-04-20 11:56 | NUR ---
Occupational Therapy evaluation offered this date. Patient politely declined OT evaluation at this this time as she was profusely scratching her UEs. OT will attempt at a later date. Thank you for this referral Arleth Barlow OTR/l
[2017-04-20 16:00] VITALS: BP 143/57
--- NOTE | 2017-04-20 18:39 | NUR ---
PATIENT IS SLEEPING IN BED, FAMILY MEMBER IS AT THE BEDSIDE. PATIENT DENIES ANY PAIN OR DISCOMFORT. PATIENT IS RECEIVING 2LPM VIA NASAL CANNULA AND IS AMBULATORY WITH ONE ASSIST. CALL LIGHT SYSTEM WAS REINFORCED WITH PATIENT AND FAMILY MEMBER. SEE SHIFT ASSESSMENT
[2017-04-20 20:00] VITALS: BP 139/68
--- NOTE | 2017-04-20 20:17 | NUR ---
PATIENT RESTING IN BED. FAMILY AT BEDSIDE. PATIENT PLEASANT, COOPERATIVE. LUNGS DIMINISHED T/O. ON 2L NC. C/O SOB WITH EXERTION. DENIES COUGH. NORMOACTIVE BOWELS X4 QUADS. DENIES N/V/D 2-3+ PITTING BLE EDEMA TO RIGHT LEG UP TO THIGH AREA. WARM REDDENED TO TOUCH. LEFT LEG 1-2+ EDEMA UP TO THIGH. CALL LIGHT WITHIN REACH, WILL MONITOR
[2017-04-21] VITALS: BP 134/62
[2017-04-21 05:49] LABS: HEMOGLOBIN 9.1 g/dl (12.0-16.0); LYMPH # 0.9 10*3/uL (1.3-4.4); LYMPH % 21.1 % (27.0-41.0); MEAN CELL VOLUME 95.8 fl (81.0-99.0); MEAN CORPUSCULAR HGB 29.1 pg (27.0-31.0); MEAN CORPUSCULAR HGB CONC 30.3 g/dl (33.0-37.0); MEAN PLATELET VOLUME 10.3 fl (9.6-12.3); MONO % 0.7 % (3.0-9.0); NEUT # 3.2 10*3/uL (2.3-7.9); NEUT % 77.2 % (47.0-73.0); PLATELET COUNT AUTOMATED 217 10*3/uL (130-400); RED BLOOD COUNT 3.13 10*6/uL (4.10-5.10); RED CELL DISTRI WIDTH 14.6 % (0-14.5); WHITE BLOOD COUNT 4.1 10*3/uL (4.8-10.8)
[2017-04-21 06:16] LABS: CREATININE 1.27 mg/dL (0.55-1.02)
[2017-04-21 06:17] LABS: INTERNATIONAL NORM RATIO 2.8 (2.0-3.5)
[2017-04-21 08:00] VITALS: BP 144/70
[2017-04-21 12:00] VITALS: BP 122/44
--- NOTE | 2017-04-21 12:09 | NUR ---
PHYSICAL THERAPY Patient evaluated on 4, full evaluation to follow. Continue with PT as per plan of care with fall and acute debility precautions. Home with 06/02 family assist as prior and home health RN. Home health PT prn. PAtient is moderate complexity via chart review, tests and evaluation: 98703. Thank you for this referral. Lilibeth Ag,PT
[2017-04-21] MEDS ORDERED: DIPHENHYDRAMINE25 M2 PO (15:01)
[2017-04-21] MEDS ORDERED: LOTRISONE30 ML T (15:26)
[2017-04-21] MEDS ORDERED: LASIX20 MG PO (15:26)
[2017-04-21] MEDS ORDERED: COZAAR50 M1 PO (15:26)
--- NOTE | 2017-04-21 15:35 | NUR ---
PT TO BE DISCHARGED HAD PNEU VACC IN 2016 AND FLU VACC 2017
--- NOTE | 2017-04-21 15:47 | NUR ---
DC TO HOME PT VERBLIZED UNDERSTANDING OF HOME FOLLOW UP PT'S JUNE RICHARD HER MED, PT ENCOURAGED TO HAVE HER CALL IF ANY QUESTIONS PT INSTRUCTED TO WHAT EDS SHE STILL NEEDS TODAY
--- NOTE | 2017-04-21 15:53 | NUR ---
DC TO HOME
== END 2017-04-21 15:53 | disposition home or self-care (01) | DRG 602 ==
LOC: ED 13:01 → EDHOLD 17:31 → 4E 17:31
PROVIDERS: Internal Medicine Hospice and Palliative Medicine; Nurse Practitioner; ADMIT Internal Medicine
DX: L03.115 Cellulitis of right lower limb (principal); N17.0 Acute kidney failure with tubular necrosis; E44.0 Moderate protein-calorie malnutrition; B48.8 Other specified mycoses; D68.59 Other primary thrombophilia; I50.32 Chronic diastolic (congestive) heart failure; I13.0 Hypertensive heart and chronic kidney disease with heart failure and stage 1 through stage 4 chronic kidney disease, or unspecified chronic kidney disease; N18.3 Chronic kidney disease, stage 3 (moderate); Z68.41 Body mass index [BMI] 40.0-44.9, adult; L29.9 Pruritus, unspecified; I87.2 Venous insufficiency (chronic) (peripheral); I89.0 Lymphedema, not elsewhere classified; Z66 Do not resuscitate; Z51.5 Encounter for palliative care; E83.41 Hypermagnesemia; E66.01 Morbid (severe) obesity due to excess calories; I48.0 Paroxysmal atrial fibrillation; E53.8 Deficiency of other specified B group vitamins; D64.9 Anemia, unspecified; F32.9 Major depressive disorder, single episode, unspecified; J44.9 Chronic obstructive pulmonary disease, unspecified; R91.1 Solitary pulmonary nodule; R73.9 Hyperglycemia, unspecified; E03.9 Hypothyroidism, unspecified; E78.5 Hyperlipidemia, unspecified; Z87.81 Personal history of (healed) traumatic fracture; Z83.3 Family history of diabetes mellitus; Z82.49 Family history of ischemic heart disease and other diseases of the circulatory system; Z80.3 Family history of malignant neoplasm of breast; Z80.1 Family history of malignant neoplasm of trachea, bronchus and lung; Z84.1 Family history of disorders of kidney and ureter; Z88.1 Allergy status to other antibiotic agents; Z88.5 Allergy status to narcotic agent; Z88.8 Allergy status to other drugs, medicaments and biological substances; Z79.01 Long term (current) use of anticoagulants; Z79.899 Other long term (current) drug therapy

== ENCOUNTER 2017-04-22 19:07 | Inpatient (IN) | payer MEDICARE, MEDICAID ==
[~2017-04-22] VITALS: Ht 142.2 cm; Wt 78.0 kg
--- NOTE | ~2017-04-22 | PR ---
[place], [place] PROGRESS NOTE NAME: ROCKY HAM UNIT #: [id number] ROOM: 508 DOCTOR: JOSEPHINE VICENTE MD,MIKHAIL BIRTHDATE: [birth year] DOS: 04/26/2017 SUBJECTIVE: She continues to show gradual reduction and improvement in the respiratory symptoms at this time. Denies symptoms of chest pain or any abdominal pain. The diuretic therapy and other treatments continued including oxygen supplementation. OBJECTIVE: VITAL SIGNS: Normal temperature, respiratory rate 18, heart rate 61, blood pressure 110/46. The pulse oxygen saturation of the patient on 2 liters noted 96% saturation. HEENT: Showed no new change. NECK: Supple. CARDIOVASCULAR: S1, S2 audible. LUNGS: Noted with moderate decreased breath sounds with questionable crackles of the lungs. ABDOMEN: Soft, nontender. LABORATORY DATA: Chest x-ray of the patient that was done this morning ordered for this patient shows resolution of previous noted congestive heart failure finding. BMP today BUN 25, creatinine 1.30. CBC was essentially noted mild anemia. IMPRESSION: Resolving acute respiratory status with acute respiratory symptom, resolving congestive heart failure. The chest x-ray of the patient shows resolution of previous noted congestive heart failure findings. PLAN OF MANAGEMENT: No changes from the pulmonary standpoint. Continue current therapy, plan and management as in progress. Other supportive plan of care and therapies. MIKHAIL BURTON MD CM:PNMCKAYLA [phone] MIKHAIL VICENTE MD 04/26/[id number] interface
--- NOTE | ~2017-04-22 | PR ---
[place], [place] PROGRESS NOTE NAME: ROCKY HAM UNIT #: [id number] ROOM: 508 DOCTOR: MIKHAIL BINGHAM MD BIRTHDATE: [birth year] DOS: 04/25/2017 SUBJECTIVE: The patient has been noted comfortable at this time without any distress. She has been ordered a BiPAP that has not been used by the patient. She refused to use the BiPAP as she did not tolerate it. She has not been noted any symptoms of chest pain, coughing or any sputum or expectoration. The shortness of breath was noted decreased in the last 24 hours. OBJECTIVE: VITAL SIGNS: For the patient which were recorded shows the temperature of the patient noted as normal, respiratory rate 20, heart rate 66, blood pressure 142/61. The pulse oxygen saturation on 2 L nasal cannula was noted as 94% saturation. Intake was 1140, output 1000 mL recorded. HEENT: Examination shows no acute change. NECK: Supple. CARDIOVASCULAR: S1, S2 audible. LUNGS: The patient was noted with [id number] decreased breath sounds. Noted the patient with questionable crackles. No wheezing. ABDOMEN: Soft, nontender. LABORATORY DATA: Arterial blood gas, pH of 7.46, pCO2 of 45, pO2 of 111 noted yesterday. CBC of the patient this morning, hemoglobin 8.9, hematocrit 28.4, platelet count was normal. BMP of the patient this morning was noted as BUN 23, creatinine 1.41. CO2 of 33. IMPRESSION: 1. The patient who has been currently noted with resolving acute congestive heart failure. The patient with improvement in respiratory status noted, decrease oxygen requirement. 2. Metabolic alkalosis, multifactorial, most likely related to underlying congestive heart failure with use of the diuretics. PLAN AND MANAGEMENT: Continue the oxygen supplementation, maintain saturation 90% or greater. Ambulation with physical therapy would be encouraged. Monitor kidney function. The elevation of creatinine was noted on today's visit. [place], [place] PROGRESS NOTE NAME: ROCKY HAM UNIT #: [id number] ROOM: 508 DOCTOR: MIKHAIL BINGHAM MD BIRTHDATE: [birth year] MIKHAIL BURTON MD CM:BART [phone] MIKHAIL VICENTE MD 04/25/17 1357 interface
--- NOTE | ~2017-04-22 | CON ---
[place], [place] REPORT OF CONSULTATION [id number] UNIT #: [id number] ROOM: 508 DOCTOR: MIKHAIL BINGHAM MD BIRTHDATE: [birth year] DOS: 04/24/2017 CONSULTATION REQUESTED: By the hospitalist services for the assessment of shortness of breath on current hospitalization. HISTORY OF PRESENT ILLNESS: This is a 71-year-old white female unknown to me, has been hospitalized a few times in the last 30 days. The patient has been admitted to the hospital, recently discharged home. She presented back to the Emergency Room. After the discharge, the patient described symptoms of shortness of breath. The patient's shortness of breath has been noted with gradual worsening. The patient has been taken to the breathing treatment, the patient's oxygen supplementation and still noted with symptoms of shortness of breath. She has been noted somewhat poor historian, limited history obtained from the patient. She denies any symptoms of chest pain. She does have symptoms of what was described as a mild cough and wheezing. Denies symptoms of hemoptysis. REVIEW OF SYSTEMS: CONSTITUTIONAL: Fatigue and tiredness noted without symptoms of fever or chills. EYES: Denies any burning, redness, or tenderness. EARS, NOSE, THROAT SYMPTOMS: No sore throat, hoarseness, otalgia, postnasal drainage or epistaxis. CARDIOVASCULAR: Denies anginal pain, edema or pain of the lower extremities. GASTROINTESTINAL: Dysphagia, nausea, vomiting, diarrhea, abdominal pain, hematemesis, melena, hematochezia. SKIN: Redness of the lower extremities was noted. MUSCULOSKELETAL: Denies acute joint pain. CENTRAL NERVOUS SYSTEM: Generally weak and fatigued noted without any focal deficit reported. Remaining systems were reviewed with the patient, is limited noted all negative. PAST MEDICAL HISTORY: With hospitalization in this hospital from 04/18/2017 until 04/21/2017 for cellulitis of the lower extremity, nonhealing wound of the lower extremities as well. She was also treated at that time for acute renal failure with ATN, also known with multiple other medical problems including atrial fibrillation and others. She has been treated with intravenous vancomycin and Zosyn, broad spectrum antibiotic. The patient later was changed to amoxicillin. She was recommended to be seen in the wound care clinic for further medical management and wound of the right lower extremity. MEDICAL HISTORY: The patient otherwise noted as: 1. Moderate obesity. 2. Chronic atrial fibrillation. 3. History of bronchial asthma. 4. Congestive heart failure, diastolic dysfunction. 5. Chronic kidney disease, stage 3. 6. Chronic obstructive pulmonary disease reported 7. Depression. 8. Essential hypertension. [place], [place] REPORT OF CONSULTATION NAME: ROCKY HAM UNIT #: [id number] ROOM: 508 DOCTOR: MIKHAIL BINGHAM MD BIRTHDATE: [birth year] 9. Hypercoagulable status, also described details unknown. 10. Hypothyroidism. 11. Pulmonary nodule reported 12. History of stasis dermatitis of the lower extremity and cellulitis of the bilateral lower extremities. 13. Nonhealing wound of the right lower extremity. PAST SURGICAL HISTORY: Reported as surgery of the left arm as well as the ankle. The ankle repair was done in the right side from previous fracture. SOCIAL HISTORY: The patient never , does have a history of tobacco, alcohol or illicit drug use. Lives at home prior to the hospitalization. FAMILY HISTORY: Reported as father at 62 with complications related to the kidney problem. Mother at 65 years old, complication related to the heart disease. History of lung cancer was reported in the brother. One sister has been known with history of breast cancer. HOME MEDICATIONS: Reported use of Lipitor, vitamin D, Lotrisone cream application, Cardizem-CD, Benadryl, Prozac, Lasix 20 mg daily, hydralazine, losartan, metoprolol tartrate, Coumadin 2 mg alternating with 5 mg daily. DRUG ALLERGIES: 1. AMOXICILLIN CAUSING ITCHING. 2. CEFDINIR. 3. CODEINE. 4. ERYTHROMYCIN. 5. METFORMIN. 6. MORPHINE. 7. PROCAINAMIDE. PHYSICAL EXAMINATION: GENERAL: This is a 71-year-old female who has been currently noted awake and alert at the time of the assessment without any distress. Height of 4 feet 8 inches reported, weight of 180 pounds, BMI 33. VITAL SIGNS: Reported the patient was noted afebrile since admission from 04/22/2017, respiratory rate range between 18-20, heart rate 70-65, blood pressure 142/55-150/59, pulse oxygen saturation on 2 liters nasal cannula 96% saturation, previously noted on the BiPAP, the patient is 96% saturation. HEENT: Moderate obesity. Head was atraumatic. Eyes nonicterus. Decreased posterior pharyngeal space. NECK: Supple. CARDIOVASCULAR: S1, S2 audible. LUNGS: Showed diffuse crackles of the lungs noted with much more marked in the right lower lung bases. There were no wheezing heard. ABDOMEN: Noted soft, nontender. EXTREMITIES: Shows some changes of redness, cellulitis. The right diameter was noted increased as compared to the left lower extremity. GENITOURINARY: Limited. Cranial nerves 2-12 intact. No focal deficits. MUSCULOSKELETAL: No deformities. [place], [place] REPORT OF CONSULTATION NAME: ROCKY HAM UNIT #: [id number] ROOM: 508 DOCTOR: MIKHAIL BINGHAM MD BIRTHDATE: [birth year] SKIN: Already stated in the lower extremities. There were no lesions or rashes. LABORATORY DATA: Past admission labs reviewed. Blood cultures dentition, no bacterial growth. CBC of 04/21/2017, at the time of discharge, WBC count 4.1, hemoglobin 9.1, hematocrit 30.3, and platelet count 217,000. BMP on 04/21/2017, BUN 16, creatinine 1.27 at that time. Ultrasound of the bilateral lower extremity on 04/19/2017, was completed as an arterial duplex showed no hemodynamically significant peripheral vascular disease, left external iliac artery was described possibly some inflow issues, consider CT angiography with runoff. Venous Dopplers of the lower extremity of 04/18/2017 was completed does not show any evidence of deep venous thrombosis of the right lower extremity. Radiology data reviewed rather for this patient. The chest x-ray that was done on previous admission in 04/08/2007 shows evidence of interstitial edema as well as congestive heart failure finding, mild cardiomegaly, possible nodular density in the left perihilar area. The chest x-ray that was done on 09/26/2015 was noted essentially no acute abnormalities at that time. Chest x-ray which was done as the patient presented to the Emergency Room on 04/22/2017 shows interstitial edema, finding of congestive heart failure, small amount of fluid in the right minor fissure was noted. Pleural fluid was also suspected small bilaterally. CT scan of the chest that was done shows interstitial edema was noted in the lungs, findings of congestive heart failure noted with current ___ as well. Moderate sized pleural fluid was noted in the right lung with a small left-sided pleural fluid was noted. There were no findings convincing for acute pneumonia was noted. IMPRESSION: 1. The patient who has been currently admitted to the hospital with increased shortness of breath with acute on chronic hypoxic respiratory failure result of the congestive heart failure, diastolic dysfunction. 2. History of chronic kidney disease was noted with a recent admission with acute kidney injury secondary to acute tubular necrosis. 3. Pleural fluid is related to the current underlying congestive heart failure. 4. Chronic anticoagulation noted with history of atrial fibrillation as well. The INR noted as a therapeutic today. The patient does not have any symptoms or findings of chronic obstructive pulmonary disease and/or bronchial asthma at this time with any acute exacerbation. Nonhealing wound of the right lower extremity, which has been managed by the Infectious Disease specialist. PLAN OF TREATMENT: From the Pulmonary standpoint, the patient would not require any antibiotic diuretic therapy, which has been currently continued on Lasix 40 mg b.i.d. #5. Continue anticoagulation as well as the diuretic therapies. If the pleural fluid remains persistent and does not resolve with conservative therapy or post-intubation failure, if it occurs, certainly I will assess the patient for thoracentesis at this time. Continuation of the oxygen supplementation, maintain a saturation of 92% or greater. The BiPAP could be used for the patient if necessary to support his respiratory status with congestive heart failure. Arterial blood gases have been ordered prior to the initiation of that. All other supportive plan and management and care. Usual [place], [place] REPORT OF CONSULTATION NAME: ROCKY HAM UNIT #: [id number] ROOM: 508 DOCTOR: ARIEL BINGHAM MDM BIRTHDATE: [birth year] care, other supportive therapy. Additional treatment changes will be done based on progression of the illness. Monitor chest x-ray will be done with the repeat chest x-ray in the next couple of days to reassess the progression of the current radiology findings. Thank you for allowing me to participate in the care of this patient. MIKHAIL BURTON MD CM:CONSTR:REPORT OF CONSULTATION 1027 04/25/17 0012 interface
--- NOTE | ~2017-04-22 | PR ---
[place], [place] PROGRESS NOTE NAME: ROCKY HAM UNIT #: [id number] ROOM: 508 DOCTOR: JOSEPHINE VICENTE MD,MIKHAIL BIRTHDATE: [birth year] DOS: 04/27/2017 SUBJECTIVE: She has been doing very well. Reduction in the respiratory complaints described. There were no symptoms of chest pain or abdominal pain. She has been ambulating as well with reduced shortness of breath. OBJECTIVE: VITAL SIGNS: For the patient which were recorded shows a normal temperature this morning, respiratory rate 18, heart rate 57, blood pressure 108/50. HEENT: Chronic obesity. NECK: Supple. CARDIOVASCULAR: S1, S2 audible. LUNGS: Noted without any wheezing at this time with questionable crackles present in the lungs. ABDOMEN: Soft and obese. LABORATORY DATA: BMP today: BUN 30, creatinine 1.49. CBC: Hemoglobin 8.8, hematocrit 27.9, platelet count were normal, WBC count were normal. Chest x-ray of the patient, 2-view, which was done yesterday for the patient was noted with no acute abnormalities. IMPRESSION: 1. The patient with progressive resolution of acute exacerbation of chronic obstructive pulmonary disease, acute tracheobronchitis. 2. Elevation of creatinine noted with acute kidney injury. 3. Congestive heart failure and other problems. PLAN OF TREATMENT: No further changes from the pulmonary standpoint. The patient could be discharged home whenever desired and stable from the other medical problems as per the primary care physician. If the patient wants to be seen in the office, she can contact and make an appointment in the office. MIKHAIL BURTON MD CM:PNTRANS [phone] MIKHAIL VICENTE MD 04/28/17 0354 interface
--- NOTE | ~2017-04-22 | EKG ---
[place], [place] ELECTROCARDIOGRAM REPORT NAME: ROCKY HAM UNIT #: [id number] ROOM: 508 DOCTOR: JOSEPHINE VICENTE MD,MIKHAIL BIRTHDATE: [birth year] DOS: 04/22/2017 DATE OF EK04/22/2017 TIME OF EK:25 p.m. FINDINGS: Atrial fibrillation was noted with controlled rate with a heart of 71 beats per minute. MIKHAIL BURTON MD CM:EKGRPT:ELECTROCARDIOGRAM REPORT [id number] MIKHAIL VICENTE MD
[~2017-04-22 19:07] MED LIST changes: +COZAAR50 M1 PO; +DIPHENHYDRAMINE25 M2 PO; +LASIX20 MG PO; +LOTRISONE30 ML T
[2017-04-22 19:14] VITALS: BP 166/96
[2017-04-22 19:47] VITALS: BP 183/67
--- NOTE | 2017-04-22 19:48 | NUR ---
at 192 pt placed on bipap 06/21 40% o2 per Dr. Carroll...spo2 94% pt tolerating bipap at this time
[2017-04-22 19:49] LABS: BASO % 0.2 % (0.0-1.0); EOS # 0.2 10*3/uL (0.0-0.4); EOS % 1.5 % (1.0-4.0); HEMATOCRIT 31.1 % (37.0-47.0); HEMOGLOBIN 9.6 g/dl (12.0-16.0); LYMPH # 1.1 10*3/uL (1.3-4.4); LYMPH % 10.5 % (27.0-41.0); MEAN CORPUSCULAR HGB 29.6 pg (27.0-31.0); MEAN CORPUSCULAR HGB CONC 30.9 g/dl (33.0-37.0); MEAN PLATELET VOLUME 9.5 fl (9.6-12.3); MONO # 0.6 10*3/uL (0.1-1.0); MONO % 5.8 % (3.0-9.0); NEUT # 8.6 10*3/uL (2.3-7.9); NEUT % 81.2 % (47.0-73.0); PLATELET COUNT AUTOMATED 219 10*3/uL (130-400); RED BLOOD COUNT 3.24 10*6/uL (4.10-5.10); RED CELL DISTRI WIDTH 15.3 % (0-14.5); WHITE BLOOD COUNT 10.5 10*3/uL (4.8-10.8)
[2017-04-22 19:57] LABS: INTERNATIONAL NORM RATIO 3.1 (2.0-3.5)
[2017-04-22 20:04] LABS: ALBUMIN 3.1 gm/dl (3.1-4.5); ALKALINE PHOSPHATASE 80 U/L (45-117); BUN 21 mg/dl (7-24); CHLORIDE 104 mmol/L (98-107); MAGNESIUM 2.4 mg/dL (1.5-2.1); POTASSIUM 3.8 mmol/L (3.5-5.1); SGOT/AST 21 IU/L (3-35); SGPT/ALT 21 U/L (12-78); SODIUM 141 mmol/L (136-145); TOTAL PROTEIN 7.8 gm/dL (6.4-8.2)
[2017-04-22 20:05] LABS: TROPONIN I < 0.015 ng/ml (<0.045)
[2017-04-22 20:27] VITALS: BP 164/86
--- NOTE | 2017-04-22 20:51 | NUR ---
PT PLACED ON 40% VENTI MASK 96% O2 PER RT
--- NOTE | 2017-04-22 22:32 | NUR ---
REPORT GIVEN TO JOCELYN PERSON
[2017-04-22 22:40] VITALS: BP 172/89
--- NOTE | 2017-04-22 22:40 | NUR ---
A 71, admitted to 5E, under the services of CAMDEN Mathis DO with a diagnosis of CHF. Chief complaint is COPD/PULMONARY DISEASE. Patient arrived via ambulance from ER. Monitor applied. Initial assessment completed. Vital signs taken and recorded. CAMDEN MATHIS DO notified of admission to the unit. Orders received. See assessment for past medical history, medications and allergies. Patient and/or family oriented to unit. visitation policy reviewed. Clothing/patient valuable form completed. BARRY FRANCOIS
--- NOTE | 2017-04-22 22:40 | NUR ---
UPON ASSESSMENT, NOTED THAT PT HAS SCABBED AREAS TO RIGHT ANKLE/ AND RIGHT OLIVEIRA. FAMILY REPORTS THAT PT HAS A HX OF CELLULITIS, AND WAS BEING TREATED BEFORE THIS CURRENT HOSPITALIZATION
--- NOTE | 2017-04-22 22:40 | NUR ---
PT REPORTS HAVING FLU VACCINE
--- NOTE | 2017-04-22 22:59 | NUR ---
PT WOUNDS ON RIGHT ANKLE, DRY SKIN ABRASION AND ERRYTHEMA ON BUTTOCKS FROM RASH
--- NOTE | 2017-04-22 23:26 | NUR ---
NOTIFIED THAT PT HAS ARRIVED TO FLOOR AND MEDICATION REQ UPDATED PER ER
[2017-04-23 03:33] LABS: BASO % 0.1 % (0.0-1.0); EOS # 0.2 10*3/uL (0.0-0.4); EOS % 1.7 % (1.0-4.0); HEMATOCRIT 30.2 % (37.0-47.0); HEMOGLOBIN 9.3 g/dl (12.0-16.0); LYMPH # 1.2 10*3/uL (1.3-4.4); LYMPH % 11.9 % (27.0-41.0); MEAN CELL VOLUME 95.3 fl (81.0-99.0); MEAN CORPUSCULAR HGB 29.3 pg (27.0-31.0); MEAN CORPUSCULAR HGB CONC 30.8 g/dl (33.0-37.0); MEAN PLATELET VOLUME 9.8 fl (9.6-12.3); MONO # 0.6 10*3/uL (0.1-1.0); NEUT # 8.2 10*3/uL (2.3-7.9); NEUT % 79.8 % (47.0-73.0); PLATELET COUNT AUTOMATED 213 10*3/uL (130-400); RED BLOOD COUNT 3.17 10*6/uL (4.10-5.10); RED CELL DISTRI WIDTH 15.1 % (0-14.5); WHITE BLOOD COUNT 10.2 10*3/uL (4.8-10.8)
[2017-04-23 03:49] LABS: CREATININE 1.14 mg/dL (0.55-1.02); MAGNESIUM 2.3 mg/dL (1.5-2.1); PHOSPHOROUS 3.2 mg/dL (2.5-4.9); POTASSIUM 3.4 mmol/L (3.5-5.1); TOTAL PROTEIN 7.8 gm/dL (6.4-8.2)
[2017-04-23 03:50] LABS: ACT PARTIAL THROMBO TIME 36.3 SECONDS (20.8-31.5); INTERNATIONAL NORM RATIO 2.9 (2.0-3.5)
--- NOTE | 2017-04-23 03:59 | NUR ---
PT RESTING IN BED WITH EYES CLOSED RESPS EASY AND NONLABORED WITH NO S/S OF DISTRESS CALL LIGHT WITH IN REACH
[2017-04-23 08:00] VITALS: BP 158/65
--- NOTE | 2017-04-23 08:52 | NUR ---
PT TERESA WATKINS, WAS IN TO SEE PT AND EXPRESSED CONCERNS R/T PLAN OF CARE. NOTIFIED DR MA THAT SHE WOULD LIKE TO SPEAK TO DR AND SHE ASKED THE FLUIDS BE STOPPED D/T HX OF CHF. DR MA OK WITH FLUIDS BEING D/C AFTER I INFORMED HIM PT DOES HAVE RALES TO LEFT PB. FLUIDS STOPPED/HELD AT THIS TIME PER DR MA'S ORDER.
--- NOTE | 2017-04-23 09:23 | NUR ---
DR MA ROUNDED AND FAMILY VOICED CONCERNS. NO OTHER NEEDS AT THIS TIME.
--- NOTE | 2017-04-23 09:32 | NUR ---
PLACED PT ON 6LNC PER RT J.LAMP. SPO2 98%. TOLERATING WELL.
--- NOTE | 2017-04-23 11:26 | NUR ---
NOTIFIED DR BURTON OF NEW CONSULT FOR POSSIBLE PNEUMONIA VIA VOICEMAIL.
--- NOTE | 2017-04-23 11:52 | NUR ---
DR KING AND TEAM ROUNDED AND SEEN PT AND POA. ORDERS RECIEVED.
[2017-04-23 12:00] VITALS: BP 122/52
--- NOTE | 2017-04-23 12:32 | NUR ---
NOTIFIED DR MA THAT I WOULD BE HOLDING CARDIZEM D/T PT HR DIPPING TO 47 AND CONSISTENTLY HOLDING IN 50'S AND THAT PT WAS HAVING LONG PAUSES B/T AFLUTTER AND AFIB.HE STATED THAT THEY WOULD LOOK AT MORNING MEDS WELL.
--- NOTE | 2017-04-23 14:54 | NUR ---
SPOKE TO DR MA REGARDING PT HR 40- 50"S AND PT 'S SCHEDULED APPRESSOLINE 50 MG, DR MA STATED TO GIVE MEDS AND CONTINUE TO MONITOR.
[2017-04-23 16:00] VITALS: BP 119/51
--- NOTE | 2017-04-23 19:30 | NUR ---
PT ABULATING TO BR AD [place]. HAT PLACED ON TOILET. PT USED CALL LIGHT WHEN FINISHED. PT HAD PLACED HAT ON FLOOR AND STATES SHE IS UNABLE TO URINATE IN THE HAT. PT TEACHING GIVEN ON IMPORTANCE OF MONITORING I/O WHILE ON TELEMETRY. PT BLANKLY STARES AT THIS NURSE. RLE RED/FLAKY/2+ PITTING EDEMA. PT HAS HX OF CELLULITIS. WILL CONT. TO MONITOR. CALL LIGHT IN REACH.
[2017-04-23 20:00] VITALS: BP 144/62
--- NOTE | 2017-04-23 22:20 | NUR ---
24 HR chart check completed.
[2017-04-24] VITALS: BP 143/55
--- NOTE | 2017-04-24 05:42 | NUR ---
PT RESTED QUIETLY IN BED THIS SHIFT. NO C/O VOICED THIS AM.
[2017-04-24 06:10] LABS: BASO % 0.2 % (0.0-1.0); EOS # 0.3 10*3/uL (0.0-0.4); EOS % 5.7 % (1.0-4.0); HEMATOCRIT 26.9 % (37.0-47.0); HEMOGLOBIN 8.4 g/dl (12.0-16.0); LYMPH # 1.1 10*3/uL (1.3-4.4); LYMPH % 19.2 % (27.0-41.0); MEAN CELL VOLUME 94.7 fl (81.0-99.0); MEAN CORPUSCULAR HGB 29.6 pg (27.0-31.0); MEAN CORPUSCULAR HGB CONC 31.2 g/dl (33.0-37.0); MEAN PLATELET VOLUME 10.3 fl (9.6-12.3); MONO # 0.5 10*3/uL (0.1-1.0); MONO % 8.2 % (3.0-9.0); NEUT # 3.9 10*3/uL (2.3-7.9); PLATELET COUNT AUTOMATED 172 10*3/uL (130-400); RED BLOOD COUNT 2.84 10*6/uL (4.10-5.10); WHITE BLOOD COUNT 5.8 10*3/uL (4.8-10.8)
[2017-04-24 06:13] LABS: ALBUMIN 2.5 gm/dl (3.1-4.5); CREATININE 1.22 mg/dL (0.55-1.02); TOTAL PROTEIN 6.9 gm/dL (6.4-8.2)
[2017-04-24 06:17] LABS: INTERNATIONAL NORM RATIO 2.5 (2.0-3.5)
[2017-04-24 08:00] VITALS: BP 115/59
--- NOTE | 2017-04-24 08:28 | NUR ---
tool and production planner in to see patient to discuss possible snf care. Patient is refusing snf, states that her sister Ingrid in a custodial and she won't go to one. Also states her brother in law cares for her, she has passport services and [facility] nurses. When asked if she has home 02 she said yes, her brother in law has it in the home. Stated she doesn't need her own.
--- NOTE | 2017-04-24 08:37 | NUR ---
DR JOSEPHINE MIRZA QAND SEEN PT.
--- NOTE | 2017-04-24 09:19 | NUR ---
SCHEDULED MEDS GIVEN PER MAR, HR 88. RESPS EASY ON 2LNC. VOICES NO NEEDS. CALL LIGHT IN REACH.
--- NOTE | 2017-04-24 10:55 | NUR ---
PHYSICAL THERAPY Patient with staffing personal over 10 minutes. Will attempt later this date. Thank you for this referral. Lilibeht Ag,PT
[2017-04-24 11:13] LABS: ABG BASE EXCESS 8.4 mmol/L (-2.0-2.0); ABG HCO3 32.7 mmol/l (22-26); ABG O2 SATURATION 99.1 % (95-97); ARTERIAL BLOOD GAS PCO2 45.6 mmHg (35-45); ARTERIAL BLOOD GAS PH 7.469 (7.35-7.45)
--- NOTE | 2017-04-24 11:29 | NUR ---
NOTIFIED DR BURTON OF ABG'S DRAWN BY RT JOSE ROSALES, ORDERS RECIEVED.
[2017-04-24 12:00] VITALS: BP 139/58
--- NOTE | 2017-04-24 13:19 | NUR ---
PHYSICAL THERAPY PAtient evaluated on 5, full evaluation to follow. continue with PT as per plan of care with fall, 02 AND ACUTE DEBILTY PRECAUITONS. REFUSES SNF, HOME WITH 06/02 FAMILY ASSIST PRIOR AND HOME HEALTH SERVICES. PATIENT IS MODRATE COMPLEXITY VIA CHART REVIEW, TESTS AND EVALUATION. THANK YOU FOR THIS REFERRAL. ZENAIDA LEDBETTER,PT
--- NOTE | 2017-04-24 14:55 | NUR ---
PATIENT TAKEN OFF OF BI-PAP, STATED SHE IS NOT GOING TO WEAR IT ANYMORE.
[2017-04-24 16:00] VITALS: BP 115/39
[2017-04-24 20:00] VITALS: BP 134/56
--- NOTE | 2017-04-24 21:08 | NUR ---
24 HR chart check completed.
[2017-04-25] VITALS: BP 130/64
--- NOTE | 2017-04-25 02:14 | NUR ---
DR. YOUSSEF NOTIFIED OF PT CODE STATUS ON PAPER IS DNRCC AND ORDER IN COMPUTER IS DNRCCA. DR. YOUSSEF WILL VERIFY IN THE AM.
--- NOTE | 2017-04-25 05:31 | NUR ---
PT REFUSED TO WEAR BIPAP X SEVERAL ATTEMPTS THROUGH OUT THIS SHIFT. PT DENIES SOB/PAIN. RESTING QUIETLY IN BED. CALL LIGHT IN REACH.
[2017-04-25 06:19] LABS: BASO % 0.3 % (0.0-1.0); EOS # 0.6 10*3/uL (0.0-0.4); EOS % 10.2 % (1.0-4.0); HEMATOCRIT 28.4 % (37.0-47.0); HEMOGLOBIN 8.9 g/dl (12.0-16.0); LYMPH # 1.3 10*3/uL (1.3-4.4); LYMPH % 21.6 % (27.0-41.0); MEAN CELL VOLUME 95.3 fl (81.0-99.0); MEAN CORPUSCULAR HGB 29.9 pg (27.0-31.0); MEAN CORPUSCULAR HGB CONC 31.3 g/dl (33.0-37.0); MEAN PLATELET VOLUME 10.1 fl (9.6-12.3); MONO # 0.4 10*3/uL (0.1-1.0); NEUT # 3.5 10*3/uL (2.3-7.9); NEUT % 60.2 % (47.0-73.0); PLATELET COUNT AUTOMATED 197 10*3/uL (130-400); RED BLOOD COUNT 2.98 10*6/uL (4.10-5.10); RED CELL DISTRI WIDTH 15.1 % (0-14.5); WHITE BLOOD COUNT 5.9 10*3/uL (4.8-10.8)
[2017-04-25 06:57] LABS: CREATININE 1.41 mg/dL (0.55-1.02); POTASSIUM 3.9 mmol/L (3.5-5.1)
[2017-04-25 08:00] VITALS: BP 142/61
--- NOTE | 2017-04-25 10:03 | NUR ---
PHYSICAL THERAPY Patient presented to therapy with report of feeling much better today. Patient is on 1 liter of spO2. Patient performed ther ex with CGA X 1 for 150' x 1 WITH 1 LITER OF spO2. Patient transferred supine to sit and sit to stand with SBA. Patient was 1:1 with this MACHINE BURRER for 20 minutes total. Randall Griffin MACHINE BURRER
[2017-04-25 12:00] VITALS: BP 131/59
[2017-04-25 16:00] VITALS: BP 135/59
[2017-04-25 20:00] VITALS: BP 126/61
--- NOTE | 2017-04-25 20:08 | NUR ---
PATIENT RESTING COMFORTABLY IN BED. FAMILY MEMBERS AT BEDSIDE. SHE HAS NO VOICED COMPLAINTS AT THIS TIME OTHER THAN WANTING TO GO HOME. RESPIRATIONS EASY/REG. CALL LIGHT IS IN REACH. WILL MONITOR.
[2017-04-26] VITALS: BP 120/48
--- NOTE | 2017-04-26 00:33 | NUR ---
SLEEPING. RESPIRATIONS EASY/REG. NO SXS OF DISTRESS. CALL LIGHT IN REACH.
--- NOTE | 2017-04-26 02:58 | NUR ---
PATIENT RESTING COMFORTABLY. NO SXS OF DISTRESS. RESPIRATIONS EASY/REGULAR. CALL LIGHT IN REACH. WILL MONITOR.
[2017-04-26 06:24] LABS: BASO % 0.3 % (0.0-1.0); EOS # 0.6 10*3/uL (0.0-0.4); EOS % 9.2 % (1.0-4.0); HEMATOCRIT 30.1 % (37.0-47.0); HEMOGLOBIN 9.3 g/dl (12.0-16.0); LYMPH # 1.3 10*3/uL (1.3-4.4); LYMPH % 21.8 % (27.0-41.0); MEAN CELL VOLUME 94.4 fl (81.0-99.0); MEAN CORPUSCULAR HGB 29.2 pg (27.0-31.0); MEAN CORPUSCULAR HGB CONC 30.9 g/dl (33.0-37.0); MONO # 0.4 10*3/uL (0.1-1.0); MONO % 6.4 % (3.0-9.0); NEUT # 3.8 10*3/uL (2.3-7.9); PLATELET COUNT AUTOMATED 199 10*3/uL (130-400); RED BLOOD COUNT 3.19 10*6/uL (4.10-5.10); RED CELL DISTRI WIDTH 14.8 % (0-14.5); WHITE BLOOD COUNT 6.1 10*3/uL (4.8-10.8)
[2017-04-26 06:44] LABS: CREATININE 1.3 mg/dL (0.55-1.02); POTASSIUM 4.1 mmol/L (3.5-5.1)
[2017-04-26 08:00] VITALS: BP 110/48
--- NOTE | 2017-04-26 08:59 | NUR ---
PT. REFUSING BIPAP.
[2017-04-26 12:00] VITALS: BP 125/47
--- NOTE | 2017-04-26 13:11 | NUR ---
SPOKE WITH DR. HERNANDEZ ON DISCHARGE PLANS FOR THE PT. HE NOTIFIED ME THAT THE PT WILL AT LEAST STAY ANOTHER NIGHT SO DR. BURTON CAN REASSESS TOMORROW. WILL CONTINUE TO MONITOR PT.
--- NOTE | 2017-04-26 13:20 | NUR ---
JUST SPOKE WITH A FAMILY MEMBER SPEEDY OVER THE TELEPHONE. SHE WAS JUST NOTIFIED THAT THE PLANS FOR THE PT IS TO STAY ONE MORE NIGHT SO PULMONARY CAN REASSESS HER TOMORROW. DISCHARGE PLANS WILL OR WILL NOT BE MADE ACCORDING TO TOMORROW'S ASSESSMENT
[2017-04-26 16:00] VITALS: BP 114/50
[2017-04-26 19:50] VITALS: BP 116/50
--- NOTE | 2017-04-26 20:00 | NUR ---
PATIENT IS RESTING QUIETLY IN BED. ONLY COMPLAINT IS WANTING TO GO HOME. PLEASANT AND COOPERATIVE WITH CARE. RESPIRATIONS EASY/REGULAR. NO SXS OF DISTRESS. CALL LIGHT IS IN REACH. WILL MONITOR.
--- NOTE | 2017-04-26 23:29 | NUR ---
PT CONTINUES TO REFUSE BIPAP
[2017-04-27] VITALS: BP 114/54
--- NOTE | 2017-04-27 01:30 | NUR ---
SLEEPING, NO SXS OF DISTRESS. RESPIRATIONS EASY/REGULAR. CALL LIGHT IS IN REACH. WILL MONITOR.
[2017-04-27 05:57] LABS: BASO % 0.1 % (0.0-1.0); EOS # 0.5 10*3/uL (0.0-0.4); EOS % 7.6 % (1.0-4.0); HEMATOCRIT 27.9 % (37.0-47.0); HEMOGLOBIN 8.8 g/dl (12.0-16.0); LYMPH # 1.5 10*3/uL (1.3-4.4); LYMPH % 21.6 % (27.0-41.0); MEAN CELL VOLUME 93.9 fl (81.0-99.0); MEAN CORPUSCULAR HGB 29.6 pg (27.0-31.0); MEAN CORPUSCULAR HGB CONC 31.5 g/dl (33.0-37.0); MEAN PLATELET VOLUME 10.6 fl (9.6-12.3); MONO # 0.6 10*3/uL (0.1-1.0); MONO % 7.9 % (3.0-9.0); NEUT # 4.4 10*3/uL (2.3-7.9); NEUT % 62.4 % (47.0-73.0); PLATELET COUNT AUTOMATED 187 10*3/uL (130-400); RED BLOOD COUNT 2.97 10*6/uL (4.10-5.10); RED CELL DISTRI WIDTH 14.7 % (0-14.5)
[2017-04-27 06:03] LABS: CREATININE 1.49 mg/dL (0.55-1.02); POTASSIUM 4.1 mmol/L (3.5-5.1)
--- NOTE | 2017-04-27 06:15 | NUR ---
PHYSICAL THERAPY Late entry for Mrs Minaya for 04/26/17: Pt not wanting her physical therapy AM or PM. Breakfast, family in and i am going home today my family is bringing in my clothes to go home in. JOHN HEARN CITRUS PEELER.
--- NOTE | 2017-04-27 06:45 | NUR ---
PATIENT RESTING QUIETLY IN BED. ON COMPLAINT IS WANTING TO GO HOME. RESPIRATIONS EASY/REGULAR. NO SXS OF DISTRESS. CALL LIGHT IS IN REACH.
[2017-04-27 08:00] VITALS: BP 108/50
[2017-04-27 11:46] LABS: INTERNATIONAL NORM RATIO 1.9 (2.0-3.5)
--- NOTE | 2017-04-27 11:52 | NUR ---
PHYSICAL THERAPY Patient presented to therapy with report of she is going to be discharged to home today. Patient performed all transfers Independently. Patient performed gait with no assistive device and STEEPLECHASE JOCKEY X 1 for 110'x 1. Patient performed seated ther ex in all planes x 20 reps each. Patient was 1:1 with this WELDING FOREMAN for 25 minutes total. Randall Griffin PTA
[2017-04-27 12:00] VITALS: BP 93/50
--- NOTE | 2017-04-27 12:21 | NUR ---
PT ASSESSED FOR HOME OXYGEN. PT DID NOT QUALIFY PT SPO2 94% RA HR, 56, RR 18, BP 104/62 PT AMBULATED APPROXIMATELY 50FT SPO2 96-98% PT AT REST SPO2 90-92% RA
--- NOTE | 2017-04-27 13:21 | NUR ---
DISCHARGE INFORMATION GIVEN TO PT AND FRIEND AND BOTH VERBALIZED GOOD KNOWLEDGS OF HOME CARE, CHF PRECAUTIONS INCLUDING LINITING FLUID/SALT INATKE, LABS TO BE DRAWN AND JEOVANNY WITH DR CHATTERJEE, PT CURRENT ON FLU/PNEU VACCINES
--- NOTE | 2017-04-27 13:42 | NUR ---
Patient is being discharged to home to resume home health via [facility]. Faxed order and clinicals to
--- NOTE | 2017-04-28 07:05 | NUR ---
PHYSICAL THERAPY CO-SIGN I approve of the Phyical Therapy notes written above. ZENAIDA LEDBETTER PT
== END 2017-04-27 13:31 | disposition home health service (06) | DRG 291 ==
LOC: ED 19:07 → EDHOLD 21:30 → 5E 21:30
PROVIDERS: Emergency Medicine Emergency Medical Services; Hospitalist; Internal Medicine; Internal Medicine Critical Care Medicine; ADMIT Internal Medicine
PROC: 5A09357 Assistance with Respiratory Ventilation, Less than 24 Consecutive Hours, Continuous Positive Airway Pressure (ICD-10-PCS; principal; 2017-04-22)
DX: I13.0 Hypertensive heart and chronic kidney disease with heart failure and stage 1 through stage 4 chronic kidney disease, or unspecified chronic kidney disease (principal); G93.41 Metabolic encephalopathy; N17.0 Acute kidney failure with tubular necrosis; J96.21 Acute and chronic respiratory failure with hypoxia; J18.9 Pneumonia, unspecified organism; E44.0 Moderate protein-calorie malnutrition; D68.59 Other primary thrombophilia; Z99.81 Dependence on supplemental oxygen; I50.33 Acute on chronic diastolic (congestive) heart failure; J44.0 Chronic obstructive pulmonary disease with (acute) lower respiratory infection; J44.1 Chronic obstructive pulmonary disease with (acute) exacerbation; I48.2 Chronic atrial fibrillation; N18.3 Chronic kidney disease, stage 3 (moderate); J20.9 Acute bronchitis, unspecified; E66.01 Morbid (severe) obesity due to excess calories; E55.9 Vitamin D deficiency, unspecified; E03.9 Hypothyroidism, unspecified; E87.6 Hypokalemia; F79 Unspecified intellectual disabilities; E78.5 Hyperlipidemia, unspecified; D64.9 Anemia, unspecified; R73.9 Hyperglycemia, unspecified; S81.801A Unspecified open wound, right lower leg, initial encounter; L30.8 Other specified dermatitis; Z66 Do not resuscitate; Z51.5 Encounter for palliative care; Z53.29 Procedure and treatment not carried out because of patient's decision for other reasons; Z88.1 Allergy status to other antibiotic agents; Z88.8 Allergy status to other drugs, medicaments and biological substances; Z88.5 Allergy status to narcotic agent; Z88.6 Allergy status to analgesic agent; Z82.49 Family history of ischemic heart disease and other diseases of the circulatory system; Z83.3 Family history of diabetes mellitus; Z84.1 Family history of disorders of kidney and ureter; Z80.9 Family history of malignant neoplasm, unspecified; Z79.899 Other long term (current) drug therapy; Z79.01 Long term (current) use of anticoagulants; Z68.33 Body mass index [BMI] 33.0-33.9, adult; X58.XXXA Exposure to other specified factors, initial encounter; Y93.89 Activity, other specified; Y92.89 Other specified places as the place of occurrence of the external cause; Y99.8 Other external cause status

== ENCOUNTER → 2017-05-01 | Outpatient (CLI) | payer MEDICARE, MEDICAID ==
[2017-05-01 12:57] LABS: INTERNATIONAL NORM RATIO 1.5 (2.0-3.5)
== END | disposition home or self-care (01) ==
LOC: LAB 12:03
PROVIDERS: Emergency Medicine
DX: Z79.01 Long term (current) use of anticoagulants (principal)

== ENCOUNTER → 2017-05-05 | Outpatient (CLI) | payer MEDICARE, MEDICAID | END | disposition home or self-care (01) | LOC: CT 12:51 | DX: R91.1 Solitary pulmonary nodule (principal); K76.89 Other specified diseases of liver ==

== ENCOUNTER → 2017-10-24 | Outpatient (CLI) | payer OTHER | END | disposition home or self-care (01) | LOC: RAD 14:53 | DX: J44.1 Chronic obstructive pulmonary disease with (acute) exacerbation (principal); I51.7 Cardiomegaly; J98.11 Atelectasis ==

== ENCOUNTER → 2018-09-24 | Outpatient (CLI) | payer OTHER ==
[2018-09-24 12:57] LABS: BASO % 0.3 % (0.0-1.0); EOS # 0.1 10*3/uL (0.0-0.4); EOS % 1.6 % (1.0-4.0); HEMATOCRIT 39.2 % (37.0-47.0); HEMOGLOBIN 12.1 g/dl (12.0-16.0); LYMPH # 1.4 10*3/uL (1.3-4.4); LYMPH % 21.7 % (27.0-41.0); MEAN CELL VOLUME 94.2 fl (81.0-99.0); MEAN CORPUSCULAR HGB 29.1 pg (27.0-31.0); MEAN CORPUSCULAR HGB CONC 30.9 g/dl (33.0-37.0); MEAN PLATELET VOLUME 10.4 fl (9.6-12.3); MONO # 0.6 10*3/uL (0.1-1.0); MONO % 9.5 % (3.0-9.0); NEUT # 4.1 10*3/uL (2.3-7.9); NEUT % 66.4 % (47.0-73.0); PLATELET COUNT AUTOMATED 139 10*3/uL (130-400); RED BLOOD COUNT 4.16 10*6/uL (4.10-5.10); WHITE BLOOD COUNT 6.2 10*3/uL (4.8-10.8)
[2018-09-24 13:30] LABS: ALBUMIN 3.4 gm/dl (3.1-4.5); CREATININE 1.29 mg/dL (0.55-1.02); POTASSIUM 3.6 mmol/L (3.5-5.1); TOTAL PROTEIN 7.5 gm/dL (6.4-8.2)
== END | disposition home or self-care (01) ==
LOC: LAB 12:17
PROVIDERS: Internal Medicine
DX: J44.1 Chronic obstructive pulmonary disease with (acute) exacerbation (principal); I51.7 Cardiomegaly; I50.9 Heart failure, unspecified

== ENCOUNTER → 2020-12-16 | Outpatient (CLI) | payer MEDICARE, OTHER | END | disposition home or self-care (01) | LOC: CARD 10:00 | PROVIDERS: ATTEND Internal Medicine | DX: I48.91 Unspecified atrial fibrillation (principal); R29.6 Repeated falls ==

== ENCOUNTER 2021-10-26 10:00 | Inpatient (IN) | payer MEDICARE, OTHER ==
[2021-10-26] VITALS (12 sets, daily range): BP systolic 143–191; BP diastolic 55–82
[~2021-10-26] VITALS: Ht 152.4 cm; Wt 67.7 kg
[~2021-10-26 10:00] MED LIST changes: +DOXYCYCLINE HY100 M3 PO; +FUROSEMIDE40 MG PO; +Hydralazine Hyd25 MG PO; +MEDROL DOSEPAK4 MG PO; +WARFARIN SODIUM5 MG PO
[2021-10-26 10:39] LABS: BASO % 0.4 % (0.0-1.0); EOS % 0.9 % (1.0-4.0); HEMATOCRIT 36.1 % (37.0-47.0); LYMPH % 20.8 % (27.0-41.0); MEAN CELL VOLUME 87.8 fl (81.0-99.0); MEAN CORPUSCULAR HGB 27.7 pg (27.0-31.0); MEAN CORPUSCULAR HGB CONC 31.6 g/dl (33.0-37.0); MEAN PLATELET VOLUME 11.3 fl (9.6-12.3); MONO # 0.4 10*3/uL (0.1-1.0); MONO % 8.1 % (3.0-9.0); NEUT # 3.2 10*3/uL (2.3-7.9); NEUT % 69.6 % (47.0-73.0); PLATELET COUNT AUTOMATED 120 10*3/uL (130-400); RED BLOOD COUNT 4.11 10*6/uL (4.10-5.10); RED CELL DISTRI WIDTH 13.8 % (0-14.5); WHITE BLOOD COUNT 4.6 10*3/uL (4.8-10.8)
[2021-10-26 10:47] LABS: INTERNATIONAL NORM RATIO 2.2 (2.0-3.5)
[2021-10-26 10:52] LABS: CREATININE 1.13 mg/dL (0.55-1.02); POTASSIUM 3.4 mmol/L (3.5-5.1); TOTAL PROTEIN 6.8 gm/dL (6.4-8.2)
[2021-10-27 06:46] LABS: BUN 17 mg/dl (7-24); CHLORIDE 106 mmol/L (98-107); POTASSIUM 3.2 mmol/L (3.5-5.1); SODIUM 141 mmol/L (136-145)
[2021-10-27 06:52] LABS: ALKALINE PHOSPHATASE 86 U/L (45-117); CHOLESTEROL 102 mg/dL (<200); CREATININE 0.81 mg/dL (0.55-1.02); FREE T4 1.22 ng/dl (0.76-1.46); LDL CHOLESTEROL 47 mg/dL (9-159); SGOT/AST 18 IU/L (3-35); SGPT/ALT 17 U/L (12-78); TOTAL PROTEIN 6.5 gm/dL (6.4-8.2); TRIGLYCERIDES 83 mg/dl (<150)
[2021-10-27 06:53] LABS: ACT PARTIAL THROMBO TIME 41.1 SECONDS (20.0-32.1); INTERNATIONAL NORM RATIO 2.7 (2.0-3.5)
[2021-10-27 07:00] LABS: BASO % 0.5 % (0.0-1.0); EOS # 0.1 10*3/uL (0.0-0.4); EOS % 1.4 % (1.0-4.0); HEMATOCRIT 35.9 % (37.0-47.0); LYMPH # 0.8 10*3/uL (1.3-4.4); LYMPH % 19.6 % (27.0-41.0); MEAN CORPUSCULAR HGB 28.3 pg (27.0-31.0); MEAN CORPUSCULAR HGB CONC 31.5 g/dl (33.0-37.0); MEAN PLATELET VOLUME 12.1 fl (9.6-12.3); MONO # 0.3 10*3/uL (0.1-1.0); MONO % 8.1 % (3.0-9.0); NEUT # 2.9 10*3/uL (2.3-7.9); NEUT % 69.9 % (47.0-73.0); PLATELET COUNT AUTOMATED 108 10*3/uL (130-400); RED BLOOD COUNT 3.99 10*6/uL (4.10-5.10); RED CELL DISTRI WIDTH 13.8 % (0-14.5); WHITE BLOOD COUNT 4.2 10*3/uL (4.8-10.8)
[2021-10-27 08:00] VITALS: BP 156/56
[2021-10-27 12:00] VITALS: BP 115/48
[2021-10-27 16:00] VITALS: BP 121/46
[2021-10-27 20:00] VITALS: BP 133/55
[2021-10-28] VITALS: BP 152/64
[2021-10-28 06:56] LABS: BUN 22 mg/dl (7-24); CHLORIDE 104 mmol/L (98-107); CREATININE 0.97 mg/dL (0.55-1.02); IRON 51 ug/dL (50-170); POTASSIUM 3.2 mmol/L (3.5-5.1); SODIUM 138 mmol/L (136-145)
[2021-10-28 07:02] LABS: TOTAL IRON BINDING CAPACITY 319 ug/dl (250-450)
[2021-10-28 08:00] VITALS: BP 150/41
[2021-10-28 12:00] VITALS: BP 159/82
[2021-10-28 16:00] VITALS: BP 129/59
[2021-10-28 20:00] VITALS: BP 118/47
[2021-10-28 23:11] LABS: BILIRUBIN Negative (Negative); BLOOD Negative (Negative); CLARITY Clear (Clear); COLOR Yellow (Yellow); GLUCOSE Negative (Negative); KETONE Negative (Negative); LEUKO ESTERASE Trace (Negative); NITRITE Negative (Negative); PH 5.5 (4.5-8.0)
[2021-10-28 23:26] LABS: BACTERIA 1+
[2021-10-29] VITALS: BP 125/53
[2021-10-29 07:50] LABS: BUN 21 mg/dl (7-24); CHLORIDE 105 mmol/L (98-107); CREATININE 1.05 mg/dL (0.55-1.02); POTASSIUM 2.9 mmol/L (3.5-5.1); SODIUM 139 mmol/L (136-145)
[2021-10-29 08:00] VITALS: BP 174/59
[2021-10-29 12:00] VITALS: BP 167/65
[2021-10-29 16:00] VITALS: BP 145/84
[2021-10-29 20:00] VITALS: BP 102/74
[2021-10-30] VITALS: BP 130/48
[2021-10-30 06:22] LABS: BASO % 0.2 % (0.0-1.0); EOS % 0.5 % (1.0-4.0); HEMATOCRIT 35.1 % (37.0-47.0); LYMPH # 1.5 10*3/uL (1.3-4.4); LYMPH % 23.1 % (27.0-41.0); MEAN CELL VOLUME 86.7 fl (81.0-99.0); MEAN CORPUSCULAR HGB 28.6 pg (27.0-31.0); MEAN PLATELET VOLUME 12.1 fl (9.6-12.3); MONO # 0.6 10*3/uL (0.1-1.0); MONO % 8.8 % (3.0-9.0); NEUT # 4.4 10*3/uL (2.3-7.9); NEUT % 66.9 % (47.0-73.0); PLATELET COUNT AUTOMATED 132 10*3/uL (130-400); RED BLOOD COUNT 4.05 10*6/uL (4.10-5.10); RED CELL DISTRI WIDTH 13.7 % (0-14.5); WHITE BLOOD COUNT 6.6 10*3/uL (4.8-10.8)
[2021-10-30 06:29] LABS: BUN 17 mg/dl (7-24); CHLORIDE 101 mmol/L (98-107); CREATININE 0.94 mg/dL (0.55-1.02); SODIUM 133 mmol/L (136-145)
[2021-10-30 06:43] LABS: POTASSIUM 3.9 mmol/L (3.5-5.1)
[2021-10-30] MEDS ORDERED: TAMSULOSIN HCL0.4 MG PO (06:49)
[2021-10-30] MEDS ORDERED: POTASSIUM CHLO20 ME4 PO (06:49)
[2021-10-30] MEDS ORDERED: CEFUROXIME AXE250 MG PO (06:54)
[2021-10-30 08:00] VITALS: BP 149/63
[2021-10-30 12:00] VITALS: BP 126/60
[2021-10-30 16:00] VITALS: BP 101/49
[2021-10-30 18:32] LABS: INTERNATIONAL NORM RATIO 2.1 (2.0-3.5)
[2021-10-30 20:00] VITALS: BP 106/51
[2021-10-31] VITALS: BP 119/53
[2021-10-31 05:58] LABS: BUN 21 mg/dl (7-24); CHLORIDE 102 mmol/L (98-107); CREATININE 0.94 mg/dL (0.55-1.02); POTASSIUM 3.7 mmol/L (3.5-5.1); SODIUM 135 mmol/L (136-145)
[2021-10-31 08:00] VITALS: BP 126/52
[2021-10-31 12:00] VITALS: BP 99/50
[2021-10-31 16:00] VITALS: BP 100/53
[2021-10-31 20:00] VITALS: BP 85/40
[2021-11-01] VITALS: BP 103/45
[2021-11-01 04:56] LABS: BUN 25 mg/dl (7-24); CHLORIDE 104 mmol/L (98-107); CREATININE 1.05 mg/dL (0.55-1.02); SODIUM 137 mmol/L (136-145)
[2021-11-01 08:00] VITALS: BP 111/64
[2021-11-01 08:22] LABS: INTERNATIONAL NORM RATIO 2.4 (2.0-3.5)
[2021-11-01 12:00] VITALS: BP 122/53
== END 2021-11-01 16:22 | disposition home health service (06) | DRG 563 ==
LOC: ED 10:00 → EDHOLD 18:37 → 4E 18:37
PROVIDERS: Emergency Medicine; Internal Medicine; ADMIT Internal Medicine; ATTEND Internal Medicine
PROC: 0PSJXZZ Reposition Left Radius, External Approach (ICD-10-PCS; principal; 2021-10-26)
PROC: 2W3FX1Z Immobilization of Left Hand using Splint (ICD-10-PCS; 2021-10-26)
DX: S62.102A Fracture of unspecified carpal bone, left wrist, initial encounter for closed fracture (principal); I50.32 Chronic diastolic (congestive) heart failure; I13.0 Hypertensive heart and chronic kidney disease with heart failure and stage 1 through stage 4 chronic kidney disease, or unspecified chronic kidney disease; N39.0 Urinary tract infection, site not specified; N18.30 Chronic kidney disease, stage 3 unspecified; J44.9 Chronic obstructive pulmonary disease, unspecified; F32.A Depression, unspecified; J45.909 Unspecified asthma, uncomplicated; F79 Unspecified intellectual disabilities; E78.5 Hyperlipidemia, unspecified; E03.9 Hypothyroidism, unspecified; R09.02 Hypoxemia; R26.81 Unsteadiness on feet; R33.9 Retention of urine, unspecified; E87.6 Hypokalemia; E55.9 Vitamin D deficiency, unspecified; E53.8 Deficiency of other specified B group vitamins; D64.9 Anemia, unspecified; D72.810 Lymphocytopenia; W19.XXXA Unspecified fall, initial encounter; Y93.89 Activity, other specified; B96.20 Unspecified Escherichia coli [E. coli] as the cause of diseases classified elsewhere; Y92.89 Other specified places as the place of occurrence of the external cause; Y99.8 Other external cause status; Z88.1 Allergy status to other antibiotic agents; Z88.5 Allergy status to narcotic agent; Z88.8 Allergy status to other drugs, medicaments and biological substances; Z82.49 Family history of ischemic heart disease and other diseases of the circulatory system; Z80.1 Family history of malignant neoplasm of trachea, bronchus and lung; Z80.3 Family history of malignant neoplasm of breast; Z79.01 Long term (current) use of anticoagulants; Z79.899 Other long term (current) drug therapy; I48.91 Unspecified atrial fibrillation

== ENCOUNTER → 2021-11-15 | Outpatient (CLI) | payer MEDICARE, OTHER ==
[~2021-11-15] MED LIST changes: +CEFUROXIME AXE250 MG PO; +POTASSIUM CHLO20 ME4 PO; +TAMSULOSIN HCL0.4 MG PO
== END | disposition home or self-care (01) ==
LOC: ORTHO 02:24
PROVIDERS: ATTEND Orthopaedic Surgery
DX: S52.572D Other intraarticular fracture of lower end of left radius, subsequent encounter for closed fracture with routine healing (principal); M85.842 Other specified disorders of bone density and structure, left hand; M19.032 Primary osteoarthritis, left wrist; X58.XXXD Exposure to other specified factors, subsequent encounter

== ENCOUNTER → 2021-12-06 | Outpatient (CLI) | payer MEDICARE, OTHER | END | disposition home or self-care (01) | LOC: ORTHO 01:31 | PROVIDERS: ATTEND Orthopaedic Surgery | DX: S52.572D Other intraarticular fracture of lower end of left radius, subsequent encounter for closed fracture with routine healing (principal); X58.XXXD Exposure to other specified factors, subsequent encounter ==